=== PATIENT | male | born 1985 | race Caucasian/White ===

== ENCOUNTER 2021-02-23 17:20 | Emergency (ER) | payer BC, OTHER | END 2021-02-23 19:00 | disposition left against medical advice (07) | LOC: MW.ED 17:20 | DX: Z53.21 Procedure and treatment not carried out due to patient leaving prior to being seen by health care provider (principal) ==

== ENCOUNTER 2021-03-04 05:53 | Emergency (ER) | payer SELFPAY ==
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
--- NOTE | 2021-03-04 07:07 | CR ---
INDICATION: Chest pain COMPARISON: none TECHNIQUE: AP erect chest performed at 6:23 a.m. FINDINGS: The lungs are clear. There is no evidence of pneumothorax. The visualized ribs appear intact. The heart, mediastinum and pulmonary vessels are of normal size. There is no evidence of pleural fluid. IMPRESSION: Negative chest. Dictated by Rashawn Sinclair MD @ 03/04/2021 7:06:19 AM (Electronically Signed)
== END 2021-03-04 07:08 | disposition critical access hospital (66) ==
LOC: MW.ED 05:53
DX: R07.89 Other chest pain (principal)
CPT/HCPCS: 71045; 71045-26; 99285-25

== ENCOUNTER 2021-03-04 09:46 | Inpatient (IN) | payer OTHER ==
[2021-03-04] MEDS ORDERED: Sodium Chloride 0.9% 1,000 ML IV ONE (09:49)
[2021-03-04] MEDS ORDERED: LORazepam 1 MG Tab PO ONE (09:49)
[2021-03-04] MEDS ORDERED: LORazepam 2 MG/ML SDV IVPUSH ONE (09:53)
[2021-03-04] MEDS ORDERED: chlordiazePOXIDE 25 MG Cap PO ONE (09:53)
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
[2021-03-04 10:56] LABS: BLOOD UREA NITROGEN,BUN 12 mg/dL (7.0-18.0); CARBON DIOXIDE,CO2 22.6 mmol/L (21.0-32.0); CHLORIDE,CL 83 mmol/L (98-107); GLUCOSE RANDOM 69 mg/dL (74-106); LIPASE 242 U/L (73-393); POTASSIUM,K 3.1 mmol/L (3.5-5.1); SODIUM,NA 129 mmol/L (136-148)
[2021-03-04] MEDS ORDERED: Thiamine 100 MG in Sodium Chloride 0.9% 100 ML IV SCH ×2 (11:00→14:30)
--- NOTE | 2021-03-04 11:27 | CT ---
Indication: Fall Technique: Noncontrast head CT Comparison: No comparison Findings: Axial noncontrast images the brain demonstrates no acute intracranial hemorrhage. No abnormal extra-axial air or fluid collections are seen. Paranasal sinuses, mastoid air cells, skull scalp appear unremarkable aside from mucosal thickening of the maxillary sinuses and partial opacification the ethmoid air cells. Impression: No acute intracranial hemorrhage or mass Please note that all CT scans at this facility use dose modulation, iterative reconstruction, and/or weight-based dosing when appropriate to reduce radiation dose to as low as reasonably achievable. Dictated by Trupti Beckford MD @ 03/04/2021 11:25:15 AM (Electronically Signed)
--- NOTE | 2021-03-04 11:29 | CT ---
Indication: Fall Technique: Cervical spine CT Comparison: No comparison Findings: Straightening of normal cervical lordosis. Normal height and alignment of the cervical vertebral bodies. The lateral masses of C1 align with the articular processes of C2. No acute fractures seen. Prevertebral soft tissues are within normal limits. Impression: No acute vertebral body fracture or traumatic malalignment. Please note that all CT scans at this facility use dose modulation, iterative reconstruction, and/or weight-based dosing when appropriate to reduce radiation dose to as low as reasonably achievable. Dictated by Trupti Beckford MD @ 03/04/2021 11:28:18 AM (Electronically Signed)
--- NOTE | 2021-03-04 11:33 | CT ---
DATE: 03/04/2021. CLINICAL HISTORY: Fall from standing, alcohol abuse. TECHNIQUE: Helical CT acquisition of the lumbar spine was performed. Coronal and sagittal reformations were performed and interpreted. COMPARISON: None available. FINDINGS: There are 5 [id number] lumbar type vertebra left hemisacralization of L5 with associated degenerative change. Postsurgical changes related to prior right L5 hemilaminectomy. There is no evidence of acute displaced fracture or traumatic malalignment of the lumbar spine. Vertebral body heights are maintained without evidence of significant compression deformity. Mild lumbar spondylosis of the lower lumbar spine with mild retrolisthesis of L4 on L5. No evidence of significant central canal stenosis. At L4-5, disc bulge eccentric to the left with associated left greater than right facet arthropathy results in apparent effacement of the left subarticular recess containing the descending L5 nerve root as well as moderate left foraminal narrowing. The paravertebral soft tissues are unremarkable. Hepatic steatosis. IMPRESSION: 1. No acute fracture or traumatic malalignment of the lumbar spine. 2. Postsurgical changes related to prior right L5 hemilaminectomy. 3. 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 4. Mild lumbar spondylosis of the lower lumbar spine with mild retrolisthesis of L4 on L5. 5. At L4-5, there is probable effacement of the left subarticular recess containing the descending L5 nerve root and moderate left foraminal narrowing. Please note that all CT scans at this facility use dose modulation, iterative reconstruction, and/or weight-based dosing when appropriate to reduce radiation dose to as low as reasonably achievable. Dictated by Zohaib Caballero MD @ 03/04/2021 6:36:48 PM (Electronically Signed)
--- NOTE | 2021-03-04 11:37 | CT ---
DATE: 03/04/2021. CLINICAL HISTORY: Fall from standing, alcohol abuse. TECHNIQUE: Helical CT acquisition of the thoracic spine was performed. Coronal and sagittal reformations were performed and interpreted. COMPARISON: None available. FINDINGS: There is no evidence of acute displaced fracture or traumatic malalignment of the thoracic spine. Vertebral body heights are maintained without evidence of significant compression deformity. Very mild scattered degenerative changes within the thoracic spine. No evidence of significant central canal stenosis. The paravertebral soft tissues are unremarkable. The visualized lungs are unremarkable. Hepatic steatosis. IMPRESSION: No acute displaced fracture or traumatic malalignment of the thoracic spine. Please note that all CT scans at this facility use dose modulation, iterative reconstruction, and/or weight-based dosing when appropriate to reduce radiation dose to as low as reasonably achievable. Dictated by Zohaib Caballero MD @ 03/04/2021 6:21:01 PM (Electronically Signed)
[2021-03-04] MEDS: Folic Acid 50 MG/10 ML MDV IV SCH (11:43)
[2021-03-04] MEDS ORDERED: Thiamine 200 MG/2 ML MDV IVPUSH ONE (12:00)
--- NOTE | 2021-03-04 14:15 | PCM.EKG ---
#1 Interpretation EKG Date: 03/04/21 Time: 14:03 Rhythm: NSR Rate (Beats/Min): 74 ST-T: Normal
[2021-03-04] MEDS ORDERED: Thiamine 200 MG/2 ML MDV ONE (14:31)
[2021-03-04] MEDS: Thiamine 200 MG/2 ML MDV IVPUSH SCH (14:39)
[2021-03-04] MEDS ORDERED: Potassium Chloride 20 MEQ Tab.ER PO ONE (16:35)
[2021-03-04] MEDS ORDERED: Magnesium Sulfate/Water 2 GM in Premix Bag 1 BAG IV ONE (16:36)
[2021-03-04] MEDS ORDERED: Sodium Chloride 0.9% 1,000 ML IV SCH (16:45)
[2021-03-04] MEDS: LORazepam 2 MG/ML SDV IVPUSH PRN ×2 (18:29→20:20)
[2021-03-04] MEDS: Sodium Chloride 0.9% with KCl 1,000 ML IV SCH (21:06)
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
[2021-03-04] MEDS: Heparin Sodium 5,000 Units/ML Vial SUBCUT SCH (22:23)
[2021-03-05] MEDS: LORazepam 2 MG/ML SDV IVPUSH PRN ×3 (03:55→17:42)
[2021-03-05] MEDS: Sodium Chloride 0.9% with KCl 1,000 ML IV SCH ×2 (05:20→22:27)
[2021-03-05] MEDS ORDERED: Diazepam 5 MG Tab PO SCH (06:00)
[2021-03-05] MEDS: Heparin Sodium 5,000 Units/ML Vial SUBCUT SCH ×3 (06:24→22:52)
[2021-03-05 06:57] LABS: BLOOD UREA NITROGEN,BUN 5 mg/dL (7.0-18.0); CARBON DIOXIDE,CO2 15.9 mmol/L (21.0-32.0); CHLORIDE,CL 98 mmol/L (98-107); GLUCOSE RANDOM 63 mg/dL (74-106); SODIUM,NA 138 mmol/L (136-148)
[2021-03-05 07:14] LABS: POTASSIUM,K 2.3 mmol/L (3.5-5.1)
[2021-03-05] MEDS ORDERED: Potassium Chloride 20 MEQ Tab.ER PO ONE ×2 (07:29→22:05)
[2021-03-05] MEDS: Folic Acid 50 MG/10 ML MDV IV SCH (08:16)
[2021-03-05] MEDS: Thiamine 200 MG/2 ML MDV IVPUSH SCH (08:16)
[2021-03-05] MEDS ORDERED: Sodium Chloride 0.9% with KCl 1,000 ML IV SCH (12:00)
--- NOTE | 2021-03-05 15:20 | PCM.PN ---
- General Info Date of Service: 03/05/21 - Review of Systems Systems Review Comment:: more alert today, wants to go home, explained that he is in police custody so if we discharge he will be going to long term. - Patient Data Vitals - Most Recent: Last Vital Signs Temp 36.6 C 03/05/21 08:00 Pulse 91 03/05/21 08:00 Resp 22 H 03/05/21 08:00 BP 118/76 03/05/21 08:00 Pulse Ox 93 L 03/05/21 08:00 Weight - Most Recent: 63.503 kg I&O - Last 24 Hours: Intake & Output 03/05/21 03/05/21 03/05/21 06:59 14:59 22:59 Intake Total 990 Output Total 1650 Balance -660 Lab Results Last 24 Hours: Laboratory Results - last 24 hr 03/04/21 03/04/21 03/05/21 Range/Units 14:21 15:30 05:29 WBC 8.56 (4.0-11.0) K/uL RBC 4.03 L (4.50-5.90) M/uL Hgb 13.9 (13.0-17.0) g/dL Hct 40.1 (38.0-50.0) % MCV 99.5 H (80.0-98.0) fL MCH 34.5 H (27.0-32.0) pg MCHC 34.7 (31.0-37.0) g/dL RDW Std Deviation 45.9 (28.0-62.0) fl RDW Coeff of Prashant 13 (11.0-15.0) % Plt Count 138 L (150-400) K/uL MPV 10.40 (7.40-12.00) fL Neut % (Auto) 71.1 (48.0-80.0) % Lymph % (Auto) 10.4 L (16.0-40.0) % [place] % (Auto) 16.9 H (0.0-15.0) % Eos % (Auto) 1.5 (0.0-7.0) % Baso % (Auto) 0.1 (0.0-1.5) % Neut # (Auto) 6.1 H (1.4-5.7) K/uL Lymph # (Auto) 0.9 (0.6-2.4) K/uL [place] # (Auto) 1.5 H (0.0-0.8) K/uL Eos # (Auto) 0.1 (0.0-0.7) K/uL Baso # (Auto) 0.0 (0.0-0.1) K/uL Nucleated RBC % 0.0 /100WBC Nucleated RBCs # 0 K/uL Sodium (136-148) mmol/L Potassium (3.5-5.1) mmol/L Chloride (98-107) mmol/L Carbon Dioxide (21.0-32.0) mmol/L BUN (7.0-18.0) mg/dL Creatinine (0.8-1.3) mg/dL Est Cr Clr Drug Dosing mL/min Estimated GFR (MDRD) ml/min Glucose (74-106) mg/dL Calcium (8.5-10.1) mg/dL Phosphorus (2.6-4.7) mg/dL Magnesium (1.8-2.4) mg/dL Total Bilirubin (0.2-1.0) mg/dL AST (15-37) IU/L ALT (14-63) IU/L Alkaline Phosphatase (46-116) U/L Total Protein (6.4-8.2) g/dL Albumin (3.4-5.0) g/dL Globulin (2.6-4.0) g/dL Albumin/Globulin Ratio (0.9-1.6) Urine Opiates Screen NEGATIVE (NEGATIVE) Ur Oxycodone Screen NEGATIVE (NEGATIVE) Urine Methadone Screen NEGATIVE (NEGATIVE) Ur Barbiturates Screen NEGATIVE (NEGATIVE) Ur Phencyclidine Scrn NEGATIVE (NEGATIVE) Ur Amphetamine Screen NEGATIVE (NEGATIVE) U Methamphetamines Scrn NEGATIVE (NEGATIVE) U Benzodiazepines Scrn NEGATIVE (NEGATIVE) U Cocaine Metab Screen NEGATIVE (NEGATIVE) U Marijuana (THC) Screen NEGATIVE (NEGATIVE) SARS-CoV-2 RNA (ROSY) NEGATIVE (NEGATIVE) 03/05/21 Range/Units 05:29 WBC (4.0-11.0) K/uL RBC (4.50-5.90) M/uL Hgb (13.0-17.0) g/dL Hct (38.0-50.0) % MCV (80.0-98.0) fL MCH (27.0-32.0) pg MCHC (31.0-37.0) g/dL RDW Std Deviation (28.0-62.0) fl RDW Coeff of Prashant (11.0-15.0) % Plt Count (150-400) K/uL MPV (7.40-12.00) fL Neut % (Auto) (48.0-80.0) % Lymph % (Auto) (16.0-40.0) % [place] % (Auto) (0.0-15.0) % Eos % (Auto) (0.0-7.0) % Baso % (Auto) (0.0-1.5) % Neut # (Auto) (1.4-5.7) K/uL Lymph # (Auto) (0.6-2.4) K/uL [place] # (Auto) (0.0-0.8) K/uL Eos # (Auto) (0.0-0.7) K/uL Baso # (Auto) (0.0-0.1) K/uL Nucleated RBC % /100WBC Nucleated RBCs # K/uL Sodium 138 (136-148) mmol/L Potassium 2.3 L* (3.5-5.1) mmol/L Chloride 98 (98-107) mmol/L Carbon Dioxide 15.9 L (21.0-32.0) mmol/L BUN 5 L (7.0-18.0) mg/dL Creatinine 0.8 (0.8-1.3) mg/dL Est Cr Clr Drug Dosing 104.83 mL/min Estimated GFR (MDRD) > 60.0 ml/min Glucose 63 L (74-106) mg/dL Calcium 7.2 L (8.5-10.1) mg/dL Phosphorus 2.7 (2.6-4.7) mg/dL Magnesium 1.9 (1.8-2.4) mg/dL Total Bilirubin 2.3 H (0.2-1.0) mg/dL AST 174 H (15-37) IU/L ALT 86 H (14-63) IU/L Alkaline Phosphatase 204 H (46-116) U/L Total Protein 6.2 L (6.4-8.2) g/dL Albumin 2.6 L (3.4-5.0) g/dL Globulin 3.6 (2.6-4.0) g/dL Albumin/Globulin Ratio 0.7 L (0.9-1.6) Urine Opiates Screen (NEGATIVE) Ur Oxycodone Screen (NEGATIVE) Urine Methadone Screen (NEGATIVE) Ur Barbiturates Screen (NEGATIVE) Ur Phencyclidine Scrn (NEGATIVE) Ur Amphetamine Screen (NEGATIVE) U Methamphetamines Scrn (NEGATIVE) U Benzodiazepines Scrn (NEGATIVE) U Cocaine Metab Screen (NEGATIVE) U Marijuana (THC) Screen (NEGATIVE) SARS-CoV-2 RNA (ROSY) (NEGATIVE) Med Orders - Current: Current Medications Diazepam (Diazepam 10 Mg/2 Ml Syringe) 2 mg IVPUSH BID [facility] Last Admin: 03/05/21 12:56 Dose: 2 mg Documented by: Folic Acid (Folic Acid 50 Mg/10 Ml Mdv) 1 mg IV DAILY [facility] Last Admin: 03/05/21 08:16 Dose: 1 mg Documented by: Heparin Sodium (Porcine) (Heparin Sodium 5,000 Units/Ml Vial) 5,000 units SUBCUT Q8H [facility] Last Admin: 03/05/21 13:25 Dose: 5,000 units Documented by: Potassium Chloride/Sodium Chloride (Normal Saline With 40 Meq Kcl) 1,000 mls @ 125 mls/hr IV ASDIRECTED [facility] Last Admin: 03/05/21 05:20 Dose: 125 mls/hr Documented by: Potassium Chloride/Sodium Chloride (Normal Saline With 40 Meq Kcl) 1,000 mls @ 150 mls/hr IV ASDIRECTED [facility] Stop: 03/05/21 18:39 Last Admin: 03/05/21 12:57 Dose: 150 mls/hr Documented by: Lorazepam (Lorazepam 2 Mg/Ml Sdv) 2 mg IVPUSH Q4H PRN; Protocol PRN Reason: PER [facility] Last Admin: 03/05/21 10:52 Dose: 2 mg Documented by: Thiamine HCl (Thiamine 200 Mg/2 Ml Mdv) 100 mg IVPUSH DAILY [facility] Last Admin: 03/05/21 08:16 Dose: 100 mg Documented by: Discontinued Medications Chlordiazepoxide HCl (Chlordiazepoxide 25 Mg Cap) 50 mg PO ONETIME ONE Stop: 03/04/21 09:54 Last Admin: 03/04/21 10:43 Dose: 50 mg Documented by: Diazepam (Diazepam 5 Mg Tab) 5 mg PO TID [facility] Last Admin: 03/05/21 06:27 Dose: Not Given Documented by: Sodium Chloride (Normal Saline) 1,000 mls @ 999 mls/hr IV .BOLUS ONE Stop: 03/04/21 10:49 Last Admin: 03/04/21 10:34 Dose: 999 mls/hr Documented by: Thiamine HCl 100 mg/ Sodium (Chloride) 101 mls @ 202 mls/hr IV DAILY [facility] Last Admin: 03/04/21 14:50 Dose: Not Given Documented by: Magnesium Sulfate 2 gm/ Premix 50 mls @ 12.5 mls/hr IV ONETIME ONE Stop: 03/04/21 20:35 Last Admin: 03/04/21 17:01 Dose: 12.5 mls/hr Documented by: Sodium Chloride (Normal Saline) 1,000 mls @ 125 mls/hr IV ASDIRECTED [facility] Last Admin: 03/04/21 17:01 Dose: 125 mls/hr Documented by: Lorazepam (Lorazepam 1 Mg Tab) 4 mg PO ONETIME ONE Stop: 03/04/21 09:50 Last Admin: 03/04/21 10:43 Dose: Not Given Documented by: Lorazepam (Lorazepam 2 Mg/Ml Sdv) 4 mg IVPUSH ONETIME ONE Stop: 03/04/21 09:54 Last Admin: 03/04/21 10:34 Dose: 4 mg Documented by: Potassium Chloride (Potassium Chloride 20 Meq Tab.Er) 40 meq PO ONETIME ONE Stop: 03/04/21 16:36 Last Admin: 03/04/21 19:42 Dose: Not Given Documented by: Potassium Chloride (Potassium Chloride 20 Meq Tab.Er) 40 meq PO ONETIME ONE Stop: 03/05/21 07:30 Last Admin: 03/05/21 11:05 Dose: Not Given Documented by: Thiamine HCl (Thiamine 200 Mg/2 Ml Mdv) 100 mg IVPUSH ONETIME ONE Stop: 03/04/21 12:01 Last Admin: 03/04/21 14:36 Dose: Not Given Documented by: Thiamine HCl (Thiamine 200 Mg/2 Ml Mdv) Confirm Administered Dose 200 mg .ROUTE .STK-MED ONE Stop: 03/04/21 14:32 Last Admin: 03/04/21 14:36 Dose: Not Given Documented by: - Exam General: No Acute Distress HEENT: Pupils Equal Neck: Supple Lungs: Clear to Auscultation, Normal Respiratory Effort Cardiovascular: Regular Rate, Regular Rhythm GI/Abdominal Exam: Normal Bowel Sounds, Soft, Non-Tender Extremities: Non-Tender, No Pedal Edema Skin: Warm, Dry, Intact - Patient Data Lab Results Last 24 hrs: Laboratory Results - last 24 hr 03/04/21 03/04/21 03/05/21 Range/Units 14:21 15:30 05:29 WBC 8.56 (4.0-11.0) K/uL RBC 4.03 L (4.50-5.90) M/uL Hgb 13.9 (13.0-17.0) g/dL Hct 40.1 (38.0-50.0) % MCV 99.5 H (80.0-98.0) fL MCH 34.5 H (27.0-32.0) pg MCHC 34.7 (31.0-37.0) g/dL RDW Std Deviation 45.9 (28.0-62.0) fl RDW Coeff of Prashant 13 (11.0-15.0) % Plt Count 138 L (150-400) K/uL MPV 10.40 (7.40-12.00) fL Neut % (Auto) 71.1 (48.0-80.0) % Lymph % (Auto) 10.4 L (16.0-40.0) % [place] % (Auto) 16.9 H (0.0-15.0) % Eos % (Auto) 1.5 (0.0-7.0) % Baso % (Auto) 0.1 (0.0-1.5) % Neut # (Auto) 6.1 H (1.4-5.7) K/uL Lymph # (Auto) 0.9 (0.6-2.4) K/uL [place] # (Auto) 1.5 H (0.0-0.8) K/uL Eos # (Auto) 0.1 (0.0-0.7) K/uL Baso # (Auto) 0.0 (0.0-0.1) K/uL Nucleated RBC % 0.0 /100WBC Nucleated RBCs # 0 K/uL Sodium (136-148) mmol/L Potassium (3.5-5.1) mmol/L Chloride (98-107) mmol/L Carbon Dioxide (21.0-32.0) mmol/L BUN (7.0-18.0) mg/dL Creatinine (0.8-1.3) mg/dL Est Cr Clr Drug Dosing mL/min Estimated GFR (MDRD) ml/min Glucose (74-106) mg/dL Calcium (8.5-10.1) mg/dL Phosphorus (2.6-4.7) mg/dL Magnesium (1.8-2.4) mg/dL Total Bilirubin (0.2-1.0) mg/dL AST (15-37) IU/L ALT (14-63) IU/L Alkaline Phosphatase (46-116) U/L Total Protein (6.4-8.2) g/dL Albumin (3.4-5.0) g/dL Globulin (2.6-4.0) g/dL Albumin/Globulin Ratio (0.9-1.6) Urine Opiates Screen NEGATIVE (NEGATIVE) Ur Oxycodone Screen NEGATIVE (NEGATIVE) Urine Methadone Screen NEGATIVE (NEGATIVE) Ur Barbiturates Screen NEGATIVE (NEGATIVE) Ur Phencyclidine Scrn NEGATIVE (NEGATIVE) Ur Amphetamine Screen NEGATIVE (NEGATIVE) U Methamphetamines Scrn NEGATIVE (NEGATIVE) U Benzodiazepines Scrn NEGATIVE (NEGATIVE) U Cocaine Metab Screen NEGATIVE (NEGATIVE) U Marijuana (THC) Screen NEGATIVE (NEGATIVE) SARS-CoV-2 RNA (ROSY) NEGATIVE (NEGATIVE) 03/05/21 Range/Units 05:29 WBC (4.0-11.0) K/uL RBC (4.50-5.90) M/uL Hgb (13.0-17.0) g/dL Hct (38.0-50.0) % MCV (80.0-98.0) fL MCH (27.0-32.0) pg MCHC (31.0-37.0) g/dL RDW Std Deviation (28.0-62.0) fl RDW Coeff of Prashant (11.0-15.0) % Plt Count (150-400) K/uL MPV (7.40-12.00) fL Neut % (Auto) (48.0-80.0) % Lymph % (Auto) (16.0-40.0) % [place] % (Auto) (0.0-15.0) % Eos % (Auto) (0.0-7.0) % Baso % (Auto) (0.0-1.5) % Neut # (Auto) (1.4-5.7) K/uL Lymph # (Auto) (0.6-2.4) K/uL [place] # (Auto) (0.0-0.8) K/uL Eos # (Auto) (0.0-0.7) K/uL Baso # (Auto) (0.0-0.1) K/uL Nucleated RBC % /100WBC Nucleated RBCs # K/uL Sodium 138 (136-148) mmol/L Potassium 2.3 L* (3.5-5.1) mmol/L Chloride 98 (98-107) mmol/L Carbon Dioxide 15.9 L (21.0-32.0) mmol/L BUN 5 L (7.0-18.0) mg/dL Creatinine 0.8 (0.8-1.3) mg/dL Est Cr Clr Drug Dosing 104.83 mL/min Estimated GFR (MDRD) > 60.0 ml/min Glucose 63 L (74-106) mg/dL Calcium 7.2 L (8.5-10.1) mg/dL Phosphorus 2.7 (2.6-4.7) mg/dL Magnesium 1.9 (1.8-2.4) mg/dL Total Bilirubin 2.3 H (0.2-1.0) mg/dL AST 174 H (15-37) IU/L ALT 86 H (14-63) IU/L Alkaline Phosphatase 204 H (46-116) U/L Total Protein 6.2 L (6.4-8.2) g/dL Albumin 2.6 L (3.4-5.0) g/dL Globulin 3.6 (2.6-4.0) g/dL Albumin/Globulin Ratio 0.7 L (0.9-1.6) Urine Opiates Screen (NEGATIVE) Ur Oxycodone Screen (NEGATIVE) Urine Methadone Screen (NEGATIVE) Ur Barbiturates Screen (NEGATIVE) Ur Phencyclidine Scrn (NEGATIVE) Ur Amphetamine Screen (NEGATIVE) U Methamphetamines Scrn (NEGATIVE) U Benzodiazepines Scrn (NEGATIVE) U Cocaine Metab Screen (NEGATIVE) U Marijuana (THC) Screen (NEGATIVE) SARS-CoV-2 RNA (ROSY) (NEGATIVE) Result Diagrams: 03/05/21 05:29 03/05/21 05:29 Sepsis Event Note - Evaluation Sepsis Screening Result: No Definite Risk - Focused Exam Vital Signs: Vital Signs Temp Pulse Resp BP Pulse Ox 03/05/21 08:00 36.6 C 91 22 H 118/76 93 L 03/05/21 03:38 36.8 C 79 20 132/82 95 - Problem List & Annotations (1) Alcohol withdrawal SNOMED Code(s): 076627849 Code(s): F10.239 - ALCOHOL DEPENDENCE WITH WITHDRAWAL, UNSPECIFIED Status: Acute Current Visit: Yes - Problem List Review Problem List Initiated/Reviewed/Updated: Yes - My Orders Last 24 Hours: My Active Orders 03/04/21 15:40 Telemetry Monitoring [Cardiac Monitoring] [RC] Q8H 03/04/21 Dinner Regular Diet [DIET] 03/04/21 16:34 LORazepam [Ativan] 2 mg IVPUSH Q4H PRN 03/04/21 19:45 Sodium Chloride 0.9% with KCl [Normal Saline with 40 mEq KCl] 1,000 ml IV ASDIRECTED 03/04/21 22:10 Oxygen Therapy [RC] PRN VTE/DVT Education [RC] PER UNIT ROUTINE Vital Signs [RC] Q4H Sequential Compression Device [OM.PC] Per Unit Routine Resuscitation Status Routine 03/04/21 22:11 Antiembolic Devices [RC] PER UNIT ROUTINE 03/04/21 22:15 Heparin Sodium 5,000 units SUBCUT Q8H 03/05/21 12:00 Sodium Chloride 0.9% with KCl [Normal Saline with 40 mEq KCl] 1,000 ml IV ASDIRECTED diazePAM [Valium] 2 mg IVPUSH BID 03/05/21 17:00 POTASSIUM,K [CHEM] 1700 03/06/21 05:11 CBC WITH AUTO DIFF [HEME] AM COMPREHENSIVE METABOLIC PN,CMP [CHEM] AM MAGNESIUM [CHEM] AM PHOSPHORUS [CHEM] AM 03/07/21 05:11 CBC WITH AUTO DIFF [HEME] AM COMPREHENSIVE METABOLIC PN,CMP [CHEM] AM MAGNESIUM [CHEM] AM PHOSPHORUS [CHEM] AM 03/08/21 05:11 CBC WITH AUTO DIFF [HEME] AM COMPREHENSIVE METABOLIC PN,CMP [CHEM] AM MAGNESIUM [CHEM] AM PHOSPHORUS [CHEM] AM 03/09/21 05:11 CBC WITH AUTO DIFF [HEME] AM COMPREHENSIVE METABOLIC PN,CMP [CHEM] AM MAGNESIUM [CHEM] AM PHOSPHORUS [CHEM] AM - Plan Plan:: 36 yo male admitted for ETOH withdrawal. ETOH withdrawal: Valium BID, ativan prn, Thiamin and folic acid. Hypokalemia:replacing
[2021-03-06] MEDS: Heparin Sodium 5,000 Units/ML Vial SUBCUT SCH ×3 (05:32→21:15)
[2021-03-06 07:03] LABS: BLOOD UREA NITROGEN,BUN 4 mg/dL (7.0-18.0); CARBON DIOXIDE,CO2 22.1 mmol/L (21.0-32.0); CHLORIDE,CL 104 mmol/L (98-107); GLUCOSE RANDOM 165 mg/dL (74-106); POTASSIUM,K 3.2 mmol/L (3.5-5.1); SODIUM,NA 137 mmol/L (136-148)
[2021-03-06] MEDS: Folic Acid 50 MG/10 ML MDV IV SCH (08:08)
[2021-03-06] MEDS: Thiamine 200 MG/2 ML MDV IVPUSH SCH (08:09)
[2021-03-06] MEDS: Sodium Chloride 0.9% with KCl 1,000 ML IV SCH (08:11)
[2021-03-06] MEDS ORDERED: Potassium Chloride 20 MEQ Tab.ER PO ONE (09:08)
[2021-03-06] MEDS ORDERED: Magnesium Sulfate/Water 2 GM/50 ML Premix Bag IV ONE (09:08)
--- NOTE | 2021-03-06 09:13 | PCM.PN ---
- General Info Date of Service: 03/06/21 - Review of Systems Systems Review Comment:: feeling better, wants to go home but is in police custody - Patient Data Vitals - Most Recent: Last Vital Signs Temp 36.6 C 03/06/21 03:48 Pulse 77 03/06/21 03:48 Resp 20 03/06/21 03:48 BP 148/101 H 03/06/21 03:48 Pulse Ox 96 03/06/21 03:48 Weight - Most Recent: 63.503 kg I&O - Last 24 Hours: Intake & Output 03/05/21 03/06/21 03/06/21 22:59 06:59 14:59 Intake Total 993 740 Output Total 1860 2000 Balance -867 -1260 Lab Results Last 24 Hours: Laboratory Results - last 24 hr 03/05/21 03/06/21 03/06/21 Range/Units 17:44 05:30 05:30 WBC 6.36 (4.0-11.0) K/uL RBC 3.73 L (4.50-5.90) M/uL Hgb 13.0 (13.0-17.0) g/dL Hct 37.5 L (38.0-50.0) % MCV 100.5 H (80.0-98.0) fL MCH 34.9 H (27.0-32.0) pg MCHC 34.7 (31.0-37.0) g/dL RDW Std Deviation 46.7 (28.0-62.0) fl RDW Coeff of Prashant 13 (11.0-15.0) % Plt Count 183 (150-400) K/uL MPV 10.10 (7.40-12.00) fL Neut % (Auto) 59.4 (48.0-80.0) % Lymph % (Auto) 17.9 (16.0-40.0) % Canadian % (Auto) 19.8 H (0.0-15.0) % Eos % (Auto) 2.7 (0.0-7.0) % Baso % (Auto) 0.2 (0.0-1.5) % Neut # (Auto) 3.8 (1.4-5.7) K/uL Lymph # (Auto) 1.1 (0.6-2.4) K/uL Canadian # (Auto) 1.3 H (0.0-0.8) K/uL Eos # (Auto) 0.2 (0.0-0.7) K/uL Baso # (Auto) 0.0 (0.0-0.1) K/uL Nucleated RBC % 0.0 /100WBC Nucleated RBCs # 0 K/uL Sodium 137 (136-148) mmol/L Potassium 2.8 L 3.2 L (3.5-5.1) mmol/L Chloride 104 (98-107) mmol/L Carbon Dioxide 22.1 (21.0-32.0) mmol/L BUN 4 L (7.0-18.0) mg/dL Creatinine 0.8 (0.8-1.3) mg/dL Est Cr Clr Drug Dosing 104.83 mL/min Estimated GFR (MDRD) > 60.0 ml/min Glucose 165 H (74-106) mg/dL Calcium 8.1 L (8.5-10.1) mg/dL Phosphorus 1.1 L (2.6-4.7) mg/dL Magnesium 1.6 L (1.8-2.4) mg/dL Total Bilirubin 1.3 H (0.2-1.0) mg/dL AST 117 H (15-37) IU/L ALT 84 H (14-63) IU/L Alkaline Phosphatase 176 H (46-116) U/L Total Protein 6.0 L (6.4-8.2) g/dL Albumin 2.3 L (3.4-5.0) g/dL Globulin 3.7 (2.6-4.0) g/dL Albumin/Globulin Ratio 0.6 L (0.9-1.6) Med Orders - Current: Current Medications Diazepam (Diazepam 10 Mg/2 Ml Syringe) 2 mg IVPUSH BID [facility] Last Admin: 03/06/21 08:10 Dose: 2 mg Documented by: Folic Acid (Folic Acid 50 Mg/10 Ml Mdv) 1 mg IV DAILY [facility] Last Admin: 03/06/21 08:08 Dose: 1 mg Documented by: Heparin Sodium (Porcine) (Heparin Sodium 5,000 Units/Ml Vial) 5,000 units S UBCUT Q8H [facility] Last Admin: 03/06/21 05:32 Dose: 5,000 units Documented by: Potassium Chloride/Sodium Chloride (Normal Saline With 40 Meq Kcl) 1,000 mls @ 125 mls/hr IV ASDIRECTED [facility] Last Admin: 03/06/21 08:11 Dose: 125 mls/hr Documented by: Lorazepam (Lorazepam 2 Mg/Ml Sdv) 2 mg IVPUSH Q4H PRN; Protocol PRN Reason: PER [facility] Last Admin: 03/05/21 17:42 Dose: 1 mg Documented by: Magnesium Sulfate (Magnesium Sulfate/Water 2 Gm/50 Ml Premix Bag) 2 gm IV ONETIME ONE Stop: 03/06/21 09:09 Potassium Chloride (Potassium Chloride 20 Meq Tab.Er) 60 meq PO ONETIME ONE Stop: 03/06/21 09:09 Sodium Phosphate (Phosphorus #1 250 Mg Tab) 250 mg PO QID [facility] Thiamine HCl (Thiamine 200 Mg/2 Ml Mdv) 100 mg IVPUSH DAILY [facility] Last Admin: 03/06/21 08:09 Dose: 100 mg Documented by: Discontinued Medications Chlordiazepoxide HCl (Chlordiazepoxide 25 Mg Cap) 50 mg PO ONETIME ONE Stop: 03/04/21 09:54 Last Admin: 03/04/21 10:43 Dose: 50 mg Documented by: Diazepam (Diazepam 5 Mg Tab) 5 mg PO TID [facility] Last Admin: 03/05/21 06:27 Dose: Not Given Documented by: Sodium Chloride (Normal Saline) 1,000 mls @ 999 mls/hr IV .BOLUS ONE Stop: 03/04/21 10:49 Last Admin: 03/04/21 10:34 Dose: 999 mls/hr Documented by: Thiamine HCl 100 mg/ Sodium (Chloride) 101 mls @ 202 mls/hr IV DAILY [facility] Last Admin: 03/04/21 14:50 Dose: Not Given Documented by: Magnesium Sulfate 2 gm/ Premix 50 mls @ 12.5 mls/hr IV ONETIME ONE Stop: 03/04/21 20:35 Last Admin: 03/04/21 17:01 Dose: 12.5 mls/hr Documented by: Sodium Chloride (Normal Saline) 1,000 mls @ 125 mls/hr IV ASDIRECTED [facility] Last Admin: 03/04/21 17:01 Dose: 125 mls/hr Documented by: Potassium Chloride/Sodium Chloride (Normal Saline With 40 Meq Kcl) 1,000 mls @ 150 mls/hr IV ASDIRECTED [facility] Stop: 03/05/21 18:39 Last Admin: 03/05/21 12:57 Dose: 150 mls/hr Documented by: Lorazepam (Lorazepam 1 Mg Tab) 4 mg PO ONETIME ONE Stop: 03/04/21 09:50 Last Admin: 03/04/21 10:43 Dose: Not Given Documented by: Lorazepam (Lorazepam 2 Mg/Ml Sdv) 4 mg IVPUSH ONETIME ONE Stop: 03/04/21 09:54 Last Admin: 03/04/21 10:34 Dose: 4 mg Documented by: Potassium Chloride (Potassium Chloride 20 Meq Tab.Er) 40 meq PO ONETIME ONE Stop: 03/04/21 16:36 Last Admin: 03/04/21 19:42 Dose: Not Given Documented by: Potassium Chloride (Potassium Chloride 20 Meq Tab.Er) 40 meq PO ONETIME ONE Stop: 03/05/21 07:30 Last Admin: 03/05/21 11:05 Dose: Not Given Documented by: Potassium Chloride (Potassium Chloride 20 Meq Tab.Er) 40 meq PO ONETIME ONE Stop: 03/05/21 22:06 Last Admin: 03/05/21 22:13 Dose: 40 meq Documented by: Thiamine HCl (Thiamine 200 Mg/2 Ml Mdv) 100 mg IVPUSH ONETIME ONE Stop: 03/04/21 12:01 Last Admin: 03/04/21 14:36 Dose: Not Given Documented by: Thiamine HCl (Thiamine 200 Mg/2 Ml Mdv) Confirm Administered Dose 200 mg .ROUTE .STK-MED ONE Stop: 03/04/21 14:32 Last Admin: 03/04/21 14:36 Dose: Not Given Documented by: - Exam General: Alert, Oriented Neck: Supple Lungs: Clear to Auscultation, Normal Respiratory Effort Cardiovascular: Regular Rate, Regular Rhythm GI/Abdominal Exam: Normal Bowel Sounds, Soft, Non-Tender Extremities: Non-Tender, No Pedal Edema - Patient Data Lab Results Last 24 hrs: Laboratory Results - last 24 hr 03/05/21 03/06/21 03/06/21 Range/Units 17:44 05:30 05:30 WBC 6.36 (4.0-11.0) K/uL RBC 3.73 L (4.50-5.90) M/uL Hgb 13.0 (13.0-17.0) g/dL Hct 37.5 L (38.0-50.0) % MCV 100.5 H (80.0-98.0) fL MCH 34.9 H (27.0-32.0) pg MCHC 34.7 (31.0-37.0) g/dL RDW Std Deviation 46.7 (28.0-62.0) fl RDW Coeff of Prashant 13 (11.0-15.0) % Plt Count 183 (150-400) K/uL MPV 10.10 (7.40-12.00) fL Neut % (Auto) 59.4 (48.0-80.0) % Lymph % (Auto) 17.9 (16.0-40.0) % Canadian % (Auto) 19.8 H (0.0-15.0) % Eos % (Auto) 2.7 (0.0-7.0) % Baso % (Auto) 0.2 (0.0-1.5) % Neut # (Auto) 3.8 (1.4-5.7) K/uL Lymph # (Auto) 1.1 (0.6-2.4) K/uL Canadian # (Auto) 1.3 H (0.0-0.8) K/uL Eos # (Auto) 0.2 (0.0-0.7) K/uL Baso # (Auto) 0.0 (0.0-0.1) K/uL Nucleated RBC % 0.0 /100WBC Nucleated RBCs # 0 K/uL Sodium 137 (136-148) mmol/L Potassium 2.8 L 3.2 L (3.5-5.1) mmol/L Chloride 104 (98-107) mmol/L Carbon Dioxide 22.1 (21.0-32.0) mmol/L BUN 4 L (7.0-18.0) mg/dL Creatinine 0.8 (0.8-1.3) mg/dL Est Cr Clr Drug Dosing 104.83 mL/min Estimated GFR (MDRD) > 60.0 ml/min Glucose 165 H (74-106) mg/dL Calcium 8.1 L (8.5-10.1) mg/dL Phosphorus 1.1 L (2.6-4.7) mg/dL Magnesium 1.6 L (1.8-2.4) mg/dL Total Bilirubin 1.3 H (0.2-1.0) mg/dL AST 117 H (15-37) IU/L ALT 84 H (14-63) IU/L Alkaline Phosphatase 176 H (46-116) U/L Total Protein 6.0 L (6.4-8.2) g/dL Albumin 2.3 L (3.4-5.0) g/dL Globulin 3.7 (2.6-4.0) g/dL Albumin/Globulin Ratio 0.6 L (0.9-1.6) Result Diagrams: 03/06/21 05:30 03/06/21 05:30 Sepsis Event Note - Evaluation Sepsis Screening Result: No Definite Risk - Focused Exam Vital Signs: Vital Signs Temp Pulse Resp BP Pulse Ox 03/06/21 03:48 36.6 C 77 20 148/101 H 96 03/05/21 22:51 36.4 C 73 20 136/96 H 99 - Problem List & Annotations (1) Alcohol withdrawal SNOMED Code(s): 648893937 Code(s): F10.239 - ALCOHOL DEPENDENCE WITH WITHDRAWAL, UNSPECIFIED Status: Acute Current Visit: Yes - Problem List Review Problem List Initiated/Reviewed/Updated: Yes - My Orders Last 24 Hours: My Active Orders 03/05/21 12:00 diazePAM [Valium] 2 mg IVPUSH BID 03/05/21 18:54 Communication Order [RC] PER UNIT ROUTINE 03/06/21 07:47 Remove Khan Catheter [Urinary Catheter Removal] [RC] PER UNIT ROUTINE 03/06/21 09:08 Magnesium Sulfate/Water [Magnesium Sulfate in Water 2 GM/50 ML] 2 gm IV ONETIME ONE Potassium Chloride [Klor-Con M20] 60 meq PO ONETIME ONE 03/06/21 12:00 Phosphorus #1 [Neutra-Phos] 250 mg PO QID 03/06/21 17:00 BASIC METABOLIC PANEL,BMP [CHEM] Routine MAGNESIUM [CHEM] Routine PHOSPHORUS [CHEM] Routine 03/07/21 05:11 CBC WITH AUTO DIFF [HEME] AM COMPREHENSIVE METABOLIC PN,CMP [CHEM] AM MAGNESIUM [CHEM] AM PHOSPHORUS [CHEM] AM 03/08/21 05:11 CBC WITH AUTO DIFF [HEME] AM COMPREHENSIVE METABOLIC PN,CMP [CHEM] AM MAGNESIUM [CHEM] AM PHOSPHORUS [CHEM] AM 03/09/21 05:11 CBC WITH AUTO DIFF [HEME] AM COMPREHENSIVE METABOLIC PN,CMP [CHEM] AM MAGNESIUM [CHEM] AM PHOSPHORUS [CHEM] AM - Plan Plan:: 36 yo male admitted for ETOH withdrawal. ETOH withdrawal: Valium BID, ativan prn, Thiamin and folic acid. Hypokalemia/hypophoshatemia/hypomagneisa:replacing
[2021-03-06] MEDS ORDERED: Magnesium Sulfate/Water 2 GM in Premix Bag 1 BAG IV ONE (09:15)
[2021-03-06] MEDS: Phosphorus #1 250 MG Tab PO SCH ×3 (11:50→23:56)
[2021-03-06] MEDS: LORazepam 2 MG/ML SDV IVPUSH PRN (18:29)
[2021-03-06 19:18] LABS: BLOOD UREA NITROGEN,BUN 3 mg/dL (7.0-18.0); CARBON DIOXIDE,CO2 27.2 mmol/L (21.0-32.0); CHLORIDE,CL 102 mmol/L (98-107); GLUCOSE RANDOM 189 mg/dL (74-106); POTASSIUM,K 3.9 mmol/L (3.5-5.1); SODIUM,NA 138 mmol/L (136-148)
[2021-03-07] MEDS: Heparin Sodium 5,000 Units/ML Vial SUBCUT SCH (05:45)
[2021-03-07] MEDS: Phosphorus #1 250 MG Tab PO SCH ×2 (05:45→11:21)
[2021-03-07 07:58] LABS: BLOOD UREA NITROGEN,BUN 4 mg/dL (7.0-18.0); CARBON DIOXIDE,CO2 27.6 mmol/L (21.0-32.0); CHLORIDE,CL 104 mmol/L (98-107); GLUCOSE RANDOM 115 mg/dL (74-106); POTASSIUM,K 3.4 mmol/L (3.5-5.1); SODIUM,NA 138 mmol/L (136-148)
[2021-03-07] MEDS: Thiamine 200 MG/2 ML MDV IVPUSH SCH (09:04)
[2021-03-07] MEDS: Folic Acid 50 MG/10 ML MDV IV SCH (09:05)
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
== END 2021-03-07 13:45 | disposition left against medical advice (07) | DRG 894 ==
LOC: MW.ED 09:46 → MW.MS 12:35 → UNDOADMIN 13:50 → MW.MS 13:50
PROVIDERS: ADMIT Internal Medicine; ATTEND Internal Medicine
DX: F10.239 Alcohol dependence with withdrawal, unspecified (principal); S30.0XXA Contusion of lower back and pelvis, initial encounter; W19.XXXA Unspecified fall, initial encounter; Y92.149 Unspecified place in prison as the place of occurrence of the external cause; E87.6 Hypokalemia
CPT/HCPCS: 36415; 51702; 70450; 70450-26; 72125; 72125-26; 72128; 72128-26; 72131; 72131-26; 80048; 80053; 80305-QW; 80307; 83690; 83735; 84100; 84132; 85025; 93005; 96374; 99285-25; A9270-GY; J1644; J2060; J3360; J3411; J3475; J3480; J7030; U0002

== ENCOUNTER 2021-03-07 15:48 | Emergency (ER) | payer OTHER ==
--- NOTE | 2021-03-07 18:37 | EDM.PDOC ---
ED HPI GENERAL MEDICAL PROBLEM - General Chief Complaint: General Stated Complaint: MEDICAL SCREENING Time Seen by Provider: 03/07/21 18:32 Source of Information: Reports: Patient, Police History Limitations: Reports: No Limitations - History of Present Illness INITIAL COMMENTS - FREE TEXT/NARRATIVE: HISTORY AND PHYSICAL: History of present illness: Patient is a 36-year-old male who presents emergency room today in law enforcement custody for medical screening for incarceration. Patient states he has no symptoms or concerns at this time. Patient denies fever, chills, chest pain, shortness of breath, or cough. Denies headache, neck stiff ness, change in vision, syncope, or near syncope. Denies nausea, vomiting, abdominal pain, diarrhea, constipation, or dysuria. Has not noted any blood in urine or stool. Patient has been eating and drinking appropriately. Review of systems: As per history of present illness and below otherwise all systems reviewed and negative. Past medical history: As per history of present illness and as reviewed below otherwise noncontributory. Surgical history: As per history of present illness and as reviewed below otherwise noncontr ibutory. Social history: See social history for further information Family history: As per history of present illness and as reviewed below otherwise noncontributory. Physical exam: General: Patient is alert, oriented, and in no acute distress. Patient sitting comfortably on exam table. Vitals stable and reviewed by me. HEENT: Atraumatic, normocephalic, pupils equal and reactive bilaterally, negative for conjunctival pallor or scleral icterus, mucous membranes moist, throat clear, neck supple, nontender, trachea midline. No drooling or trismus noted. No meningeal signs. No hot potato voice noted. Lungs: Clear to auscultation, breath sounds equal bilaterally, chest nontender. Heart: S1S2, regular rate and rhythm without overt murmur Abdomen: Soft, nondistended, nontender. Negative for masses or hepatosplenomegaly. Negative for costovertebral tenderness. Pelvis: Stable nontender. Genitourinary: Deferred. Rectal: Deferred. Skin: Intact, warm, dry. No lesions or rashes noted. Extremities: Atraumatic, negative for cords or calf pain. Neurovascular unremarkable. Neuro: Awake, alert, oriented. Cranial nerves II through XII unremarkable. Cerebellum unremarkable. Motor and sensory unremarkable throughout. Exam nonfocal. Medical Decision Making: Discussed importance for follow-up with a primary care provider. Signs and symptoms that were prompt return to the ED thoroughly discussed with patient. Voices understanding and is agreeable to plan of care. Denies any further questions or concerns at this time. Diagnostics: None Therapeutics: None Prescription: None Impression: Medical screening for incarceration Plan: Patient discharged to law enforcement custody in stable condition Definitive disposition and diagnosis as appropriate pending reevaluation and review of above. - Related Data Allergies Allergy/AdvReac Type Severity Reaction Status Date / Time No Known Allergies Allergy Verified 03/07/21 16:00 Home Meds: Home Meds . [No Known Home Meds] 02/23/21 [History] Past Medical History - Past Health History Medical/Surgical History: Denies Medical/Surgical History Musculoskeletal History: Reports: Fracture Other Musculoskeletal History: hx of broken collar bone and feet - Infectious Disease History Infectious Disease History: Reports: Chicken Pox Social & Family History - Family History Family Medical History: No Pertinent Family History - Tobacco Use Tobacco Use Status *Q: Current Every Day Tobacco User Years of Tobacco use: 15 Packs/Tins Daily: 2 - Caffeine Use Caffeine Use: Reports: Soda - Recreational Drug Use Recreational Drug Use: No ED ROS GENERAL - Review of Systems Review Of Systems: Comprehensive ROS is negative, except as noted in HPI. ED EXAM, GENERAL - Physical Exam Exam: See Below (See dictation) Course - Vital Signs Last Recorded V/S: Last Vital Signs Temp 98.5 F 03/07/21 16:00 Pulse 101 H 03/07/21 16:00 Resp 16 03/07/21 16:00 BP 130/94 H 03/07/21 16:00 Pulse Ox 100 03/07/21 16:00 Departure - Departure Time of Disposition: 18:35 Disposition: Home, Self-Care 01 Clinical Impression: Medical clearance for incarceration - Discharge Information Referrals: PCP,None [Primary Care Provider] - Additional Instructions: The following information is given to patients seen in the emergency department who are being discharged to home. This information is to outline your options for follow-up care. We provide all patients seen in our emergency department with a follow-up referral. The need for follow-up, as well as the timing and circumstances, are variable depending upon the specifics of your emergency department visit. If you don't have a primary care physician on staff, we will provide you with a referral. We always advise you to contact your personal physician following an emergency department visit to inform them of the circumstance of the visit and for follow-up with them and/or the need for any referrals to a consulting specialist. The emergency department will also refer you to a specialist when appropriate. This referral assures that you have the opportunity for follow-up care with a specialist. All of these measure are taken in an effort to provide you with optimal care, which includes your follow-up. Under all circumstances we always encourage you to contact your private physician who remains a resource for coordinating your care. When calling for follow-up care, please make the office aware that this follow-up is from your recent emergency room visit. If for any reason you are refused follow-up, please contact the [facility] Emergency Department at and asked to speak to the emergency department charge nurse. [facility] [address] [place] [id number] [id number] Sepsis Event Note (ED) - Evaluation Sepsis Screening Result: No Definite Risk - Focused Exam Vital Signs: Vital Signs Temp Pulse Resp BP Pulse Ox 03/07/21 16:00 98.5 F 101 H 16 130/94 H 100
== END 2021-03-07 18:49 ==
LOC: MW.ED 15:48
DX: Z02.89 Encounter for other administrative examinations (principal); Z72.0 Tobacco use
CPT/HCPCS: 99283

== ENCOUNTER 2021-11-30 20:27 | Emergency (ER) | payer MEDICAID | END 2021-11-30 22:17 | disposition left against medical advice (07) | LOC: MW.ED 20:27 | DX: Z53.21 Procedure and treatment not carried out due to patient leaving prior to being seen by health care provider (principal) ==

== ENCOUNTER 2022-09-08 10:48 | Inpatient (IN) | payer SELFPAY ==
[2022-09-08] MEDS ORDERED: Sodium Chloride 0.9% 2.5 ML Syringe FLUSH PRN (10:56)
[2022-09-08] MEDS ORDERED: Sodium Chloride 0.9% 10 ML Syringe FLUSH PRN (10:56)
[2022-09-08] MEDS ORDERED: LORazepam 2 MG/ML SDV IVPUSH ONE ×3 (10:57→13:59)
[2022-09-08 11:25] LABS: A/G RATIO 0.9 (0.9-1.6); ALANINE AMINOTRANSFERASE,ALT 107 IU/L (14-63); ALKALINE PHOSPHATASE 147 U/L (46-116); ASPARTATE AMNIOTRANSFERASE,AST 137 IU/L (15-37); BILIRUBIN TOTAL 2.3 mg/dL (0.2-1.0); BLOOD UREA NITROGEN,BUN 13 mg/dL (7.0-18.0); CARBON DIOXIDE,CO2 27.6 mmol/L (21.0-32.0); CHLORIDE,CL 92 mmol/L (98-107); CREATINE KINASE,CK 193 U/L (26-308); CREATININE 1.3 mg/dL (0.8-1.3); EST CRCL DRUG DOSING (CG) 56.87 mL/min; ETHANOL BLOOD MEDICAL <3 mg/dL; GLUCOSE RANDOM 197 mg/dL (74-106); LIPASE 237 U/L (73-393); POTASSIUM,K 2.5 mmol/L (3.5-5.1); PROTEIN TOTAL,TP 8.4 g/dL (6.4-8.2); SODIUM,NA 141 mmol/L (136-148)
[2022-09-08 11:27] LABS: ESTIMATED GFR 72 mL/min (>60)
[2022-09-08] MEDS ORDERED: Potassium Chloride 20 MEQ Tab.ER PO ONE (11:33)
[2022-09-08 11:54] LABS: BASOPHILS PERCENT AUTO 0.2 % (0.0-1.5); EOSINOPHILS PERCENT AUTO 0.2 % (0.0-7.0); HEMATOCRIT 48.2 % (38.0-50.0); LYMPHOCYTES ABSOLUTE AUTO 0.6 K/uL (0.6-2.4); LYMPHOCYTES PERCENT AUTO 10.9 % (16.0-40.0); MEAN CORPUSCULAR HEMOGLOBIN 34.5 pg (27.0-32.0); MEAN CORPUSCULAR HGB CONC 35.3 g/dL (31.0-37.0); MEAN CORPUSCULAR VOLUME 97.8 fL (80.0-98.0); MONOCYTES ABSOLUTE AUTO 0.9 K/uL (0.0-0.8); MONOCYTES PERCENT AUTO 16.8 % (0.0-15.0); NEUTROPHILS ABSOLUTE AUTO 3.6 K/uL (1.4-5.7); NEUTROPHILS PERCENT AUTO 71.9 % (48.0-80.0); NRBC ABSOLUTE 0 K/uL; RED BLOOD CELL COUNT 4.93 M/uL (4.50-5.90); WHITE BLOOD CELL COUNT,WBC 5.05 K/uL (4.0-11.0)
[2022-09-08 12:05] LABS: PLATELET COUNT,PLT 75 K/uL (150-400)
[2022-09-08 12:06] LABS: INR 1.03 (0.86-1.11)
[2022-09-08 12:17] LABS: CALCIUM 9.8 mg/dL (8.5-10.1); CARBON DIOXIDE,CO2 30.2 mmol/L (21.0-32.0); EST CRCL DRUG DOSING (CG) 73.93 mL/min; POTASSIUM,K 2.8 mmol/L (3.5-5.1)
[2022-09-08] MEDS ORDERED: Magnesium Sulfate (4.06 MEQ/ML) 5 GM/10 ML SDV IV STA (12:59)
[2022-09-08] MEDS ORDERED: Sodium Chloride 0.9% 250 ML IV ONE (13:15)
[2022-09-08] MEDS ORDERED: Potassium Chloride 20 MEQ in Premix Bag 1 BAG IV ONE (13:15)
[2022-09-08] MEDS ORDERED: Sodium Chloride 0.9% 1,000 ML IV ONE ×2 (13:18)
[2022-09-08] MEDS ORDERED: Thiamine 200 MG/2 ML MDV IVPUSH ONE (13:18)
[2022-09-08] MEDS ORDERED: Magnesium Sulfate/Water 2 GM in Premix Bag 1 BAG IV ONE (13:21)
[2022-09-08] MEDS: Folic Acid 1 MG/0.2 ML UD Syringe IV SCH (13:36)
[2022-09-08] MEDS ORDERED: LORazepam 2 MG/ML SDV ONE ×3 (13:51→16:15)
[2022-09-08] MEDS ORDERED: Ondansetron 4 MG/2 ML SDV IVPUSH PRN (17:18)
[2022-09-08] MEDS ORDERED: Sodium Chloride 0.9% 500 ML IV SCH (19:30)
[2022-09-08] MEDS: LORazepam 2 MG/ML SDV IVPUSH PRN ×2 (20:00→23:20)
[2022-09-08] MEDS: Potassium Chloride 100 ML IV SCH ×2 (20:07→22:05)
[2022-09-08 20:31] LABS: COLOR,URINE DARK YELLOW; GLUCOSE,URINE NEGATIVE (NEGATIVE); KETONES,URINE 40 mg/dL (NEGATIVE); LEUKOCYTE ESTERASE,URINE NEGATIVE (NEGATIVE); NITRITE,URINE NEGATIVE (NEGATIVE); OCCULT BLOOD,URINE NEGATIVE (NEGATIVE); PROTEIN,URINE NEGATIVE (NEGATIVE); UROBILINOGEN,URINE >=8.0 EU/dL (<2.0)
[2022-09-08 20:35] LABS: APPEARANCE,URINE CLEAR; BILIRUBIN,URINE SMALL (NEGATIVE)
[2022-09-08 20:41] LABS: AMPHETAMINES SCREEN, URINE NEGATIVE (CUTOFF=500); BARBITURATE SCREEN,URINE NEGATIVE (CUTOFF=200); BENZODIAZEPINES SCREEN,URINE PRESUMPTIVE POSITIVE (CUTOFF=150); BUPRENORPHINE SCREEN,URINE NEGATIVE (CUTOFF=10); METHADONE SCREEN, URINE NEGATIVE (CUTOFF=200); METHAMPHETAMINES SCREEN, URINE NEGATIVE (CUTOFF=500); OXYCODONE SCREEN,URINE NEGATIVE (CUT0FF=100); PCP SCREEN,URINE NEGATIVE (CUTOFF=25); PROPOXYPHENE SCREEN,URINE NEGATIVE (CUTOFF=300); THC SCREEN,URINE 20 NG/ML NEGATIVE (CUTOFF=50)
[2022-09-09] MEDS: LORazepam 2 MG/ML SDV IVPUSH PRN (03:48)
[2022-09-09 06:33] LABS: A/G RATIO 0.8 (0.9-1.6); ALBUMIN 2.9 g/dL (3.4-5.0); BILIRUBIN TOTAL 1.6 mg/dL (0.2-1.0); CALCIUM 8.4 mg/dL (8.5-10.1); CARBON DIOXIDE,CO2 26.4 mmol/L (21.0-32.0); CREATININE 0.6 mg/dL (0.8-1.3); EST CRCL DRUG DOSING (CG) 127.58 mL/min; POTASSIUM,K 3.3 mmol/L (3.5-5.1); PROTEIN TOTAL,TP 6.5 g/dL (6.4-8.2); TSH ULTRASENSITIVE 1.23 uIU/mL (0.36-3.74)
[2022-09-09] MEDS ORDERED: Potassium Chloride 20 MEQ Tab.ER PO ONE (08:08)
[2022-09-09] MEDS: Folic Acid 1 MG/0.2 ML UD Syringe IV SCH (08:27)
[2022-09-09] MEDS ORDERED: Thiamine 200 MG/2 ML MDV IVPUSH SCH (09:00)
[2022-09-09] MEDS ORDERED: Folic Acid 1 MG Tab PO SCH (09:00)
[2022-09-09 09:19] LABS: BASOPHILS PERCENT AUTO 0.3 % (0.0-1.5); EOSINOPHILS PERCENT AUTO 0.4 % (0.0-7.0); HEMATOCRIT 42.8 % (38.0-50.0); HEMOGLOBIN 14.6 g/dL (13.0-17.0); LYMPHOCYTES ABSOLUTE AUTO 0.9 K/uL (0.6-2.4); LYMPHOCYTES PERCENT AUTO 10.8 % (16.0-40.0); MEAN CORPUSCULAR HEMOGLOBIN 34.1 pg (27.0-32.0); MEAN CORPUSCULAR HGB CONC 34.1 g/dL (31.0-37.0); MONOCYTES ABSOLUTE AUTO 0.8 K/uL (0.0-0.8); MONOCYTES PERCENT AUTO 9.8 % (0.0-15.0); NEUTROPHILS ABSOLUTE AUTO 6.2 K/uL (1.4-5.7); NEUTROPHILS PERCENT AUTO 78.7 % (48.0-80.0); NRBC ABSOLUTE 0 K/uL; PLATELET COUNT,PLT 51 K/uL (150-400); RED BLOOD CELL COUNT 4.28 M/uL (4.50-5.90); WHITE BLOOD CELL COUNT,WBC 7.84 K/uL (4.0-11.0)
[2022-09-09] MEDS ORDERED: Diazepam 2 MG Tab PO SCH (10:00)
[2022-09-09] MEDS ORDERED: Sodium Chloride 0.9% 10 ML Syringe FLUSH PRN (10:34)
[2022-09-09] MEDS ORDERED: Acetaminophen 325 MG Tab PO PRN (10:34)
[2022-09-09] MEDS ORDERED: Sodium Chloride 0.9% 2.5 ML Syringe FLUSH PRN (10:34)
[2022-09-09] MEDS ORDERED: Pantoprazole 40 MG in Sodium Chloride 0.9% 10 ML IVPUSH SCH (10:45)
[2022-09-10] MEDS ORDERED: Folic Acid 1 MG/0.2 ML UD Syringe IV SCH (09:00)
== END 2022-09-09 12:45 | disposition left against medical advice (07) | DRG 894 ==
LOC: MW.ED 10:48 → MW.MS 14:01 → MW.ICU 15:00 → OBSVTOIN 09-09 10:53
PROVIDERS: ADMIT Internal Medicine; ATTEND Internal Medicine
DX: F10.231 Alcohol dependence with withdrawal delirium (principal); R74.01 Elevation of levels of liver transaminase levels; E87.6 Hypokalemia; E80.6 Other disorders of bilirubin metabolism; D69.6 Thrombocytopenia, unspecified; F17.210 Nicotine dependence, cigarettes, uncomplicated; S01.91XA Laceration without foreign body of unspecified part of head, initial encounter; G40.909 Epilepsy, unspecified, not intractable, without status epilepticus; W18.30XA Fall on same level, unspecified, initial encounter; N28.9 Disorder of kidney and ureter, unspecified; Z79.899 Other long term (current) drug therapy
CPT/HCPCS: 36415; 70450; 70450-26; 71045; 71045-26; 72125; 72125-26; 80048; 80053; 80305-QW; 80307; 81003; 82550; 82947; 83690; 83735; 84132; 84443; 84484; 85025; 85610; 93005; 93010; 96365; 96366; 96368; 96375; 96376; 99285-25; 99291; A9270-GY; C9113; G0378; J2060; J3411; J3475; J3480; J3490; J7030; J7040; J7050; U0002

== ENCOUNTER 2022-09-19 19:32 | Emergency (ER) | payer SELFPAY | END 2022-09-19 20:17 | LOC: MW.ED 19:32 | DX: Z02.89 Encounter for other administrative examinations (principal) | CPT/HCPCS: 99282 ==

== ENCOUNTER 2022-09-22 02:20 | Emergency (ER) | payer OTHER ==
[2022-09-22] MEDS ORDERED: Sodium Chloride 0.9% 1,000 ML IV ONE (02:23)
[2022-09-22] MEDS ORDERED: LORazepam 2 MG/ML SDV IVPUSH ONE ×3 (02:32→03:49)
[2022-09-22] MEDS ORDERED: Folic Acid 1 MG/0.2 ML UD Syringe IV STA (02:39)
[2022-09-22] MEDS ORDERED: Thiamine 200 MG/2 ML MDV IVPUSH ONE (02:39)
[2022-09-22] MEDS ORDERED: Erythromycin Base 0.5% Ophth Oint 1 GM Tube EYERT ONE (03:06)
[2022-09-22 03:56] LABS: BASOPHILS PERCENT AUTO 0.2 % (0.0-1.5); EOSINOPHILS PERCENT AUTO 0.5 % (0.0-7.0); HEMATOCRIT 40.5 % (38.0-50.0); HEMOGLOBIN 14.1 g/dL (13.0-17.0); LYMPHOCYTES ABSOLUTE AUTO 0.9 K/uL (0.6-2.4); LYMPHOCYTES PERCENT AUTO 15.5 % (16.0-40.0); MEAN CORPUSCULAR HEMOGLOBIN 33.5 pg (27.0-32.0); MEAN CORPUSCULAR HGB CONC 34.8 g/dL (31.0-37.0); MEAN CORPUSCULAR VOLUME 96.2 fL (80.0-98.0); MONOCYTES ABSOLUTE AUTO 0.7 K/uL (0.0-0.8); MONOCYTES PERCENT AUTO 12.5 % (0.0-15.0); NEUTROPHILS PERCENT AUTO 71.3 % (48.0-80.0); NRBC ABSOLUTE 0 K/uL; PLATELET COUNT,PLT 82 K/uL (150-400); RED BLOOD CELL COUNT 4.21 M/uL (4.50-5.90); WHITE BLOOD CELL COUNT,WBC 5.54 K/uL (4.0-11.0)
[2022-09-22 04:14] LABS: INR 1.09 (0.86-1.11); PTT,PARTIAL THROMBOPLSTIN TIME 28.8 SEC (23.9-30.7)
[2022-09-22 04:25] LABS: LACTIC ACID 1.6 mmol/L (0.4-2.0)
[2022-09-22 04:28] LABS: A/G RATIO 0.9 (0.9-1.6); ALANINE AMINOTRANSFERASE,ALT 66 IU/L (14-63); ALBUMIN 3.3 g/dL (3.4-5.0); ALKALINE PHOSPHATASE 117 U/L (46-116); ASPARTATE AMNIOTRANSFERASE,AST 108 IU/L (15-37); BILIRUBIN TOTAL 1.3 mg/dL (0.2-1.0); BLOOD UREA NITROGEN,BUN 15 mg/dL (7.0-18.0); CARBON DIOXIDE,CO2 33.2 mmol/L (21.0-32.0); CHLORIDE,CL 90 mmol/L (98-107); CREATININE 0.7 mg/dL (0.8-1.3); GLUCOSE RANDOM 135 mg/dL (74-106); MAGNESIUM 1.4 mg/dL (1.8-2.4); POTASSIUM,K 2.9 mmol/L (3.5-5.1); PROTEIN TOTAL,TP 7.1 g/dL (6.4-8.2); SODIUM,NA 133 mmol/L (136-148)
[2022-09-22 04:29] LABS: ESTIMATED GFR 120 mL/min (>60); ETHANOL BLOOD MEDICAL < 3.0 mg/dL
[2022-09-22] MEDS ORDERED: Magnesium Sulfate/Water 2 GM in Premix Bag 1 BAG IV ONE (04:35)
[2022-09-22] MEDS ORDERED: Sodium Chloride 0.9% 250 ML IV SCH (04:45)
[2022-09-22] MEDS ORDERED: Potassium Chloride 100 ML IV SCH (04:45)
[2022-09-22] MEDS ORDERED: Haloperidol Lactate 5 MG/ML SDV IM ONE (05:09)
[2022-09-22 07:33] LABS: APPEARANCE,URINE CLEAR; BILIRUBIN,URINE NEGATIVE (NEGATIVE); COLOR,URINE YELLOW; GLUCOSE,URINE NEGATIVE (NEGATIVE); KETONES,URINE 15 mg/dL (NEGATIVE); LEUKOCYTE ESTERASE,URINE NEGATIVE (NEGATIVE); NITRITE,URINE NEGATIVE (NEGATIVE); OCCULT BLOOD,URINE NEGATIVE (NEGATIVE); PH,URINE 7.5 (5.0-8.0); PROTEIN,URINE NEGATIVE (NEGATIVE)
[2022-09-22 07:42] LABS: AMPHETAMINES SCREEN, URINE NEGATIVE (CUTOFF=500); BARBITURATE SCREEN,URINE NEGATIVE (CUTOFF=200); BENZODIAZEPINES SCREEN,URINE PRESUMPTIVE POSITIVE (CUTOFF=150); BUPRENORPHINE SCREEN,URINE NEGATIVE (CUTOFF=10); METHADONE SCREEN, URINE NEGATIVE (CUTOFF=200); METHAMPHETAMINES SCREEN, URINE NEGATIVE (CUTOFF=500); OXYCODONE SCREEN,URINE NEGATIVE (CUT0FF=100); PCP SCREEN,URINE NEGATIVE (CUTOFF=25); PROPOXYPHENE SCREEN,URINE NEGATIVE (CUTOFF=300); THC SCREEN,URINE 20 NG/ML NEGATIVE (CUTOFF=50)
== END 2022-09-22 07:05 ==
LOC: MW.ED 02:20
DX: S06.30AA Unspecified focal traumatic brain injury with loss of consciousness status unknown, initial encounter (principal); S01.01XA Laceration without foreign body of scalp, initial encounter; R56.9 Unspecified convulsions; F10.231 Alcohol dependence with withdrawal delirium; E87.6 Hypokalemia; E83.42 Hypomagnesemia; D69.6 Thrombocytopenia, unspecified; R74.01 Elevation of levels of liver transaminase levels; H10.9 Unspecified conjunctivitis; W18.30XA Fall on same level, unspecified, initial encounter
CPT/HCPCS: 36415; 70450; 72125; 80053; 80305; 80307; 81003; 83605; 83735; 84443; 85025; 85610; 85730; 93005; 96361; 96365; 96367; 96372; 96375; 99285; A9270; J1630; J1953; J2060; J3411; J3475; J7030; J7060; 12001; 93010; 99291; 99292; J3490

== ENCOUNTER 2023-04-03 10:42 | Emergency (ER) | payer SELFPAY | END 2023-04-03 11:46 | LOC: MW.ED 10:42 | DX: F10.20 Alcohol dependence, uncomplicated (principal); Z02.89 Encounter for other administrative examinations | CPT/HCPCS: 82947; 99282; 99283 ==

== ENCOUNTER 2023-05-19 10:49 | Emergency (ER) | payer SELFPAY ==
[2023-05-19] MEDS ORDERED: Sodium Chloride 0.9% 1,000 ML IV ONE (11:55)
[2023-05-19 13:13] LABS: HEMATOCRIT 40.4 % (42.0-52.0); HEMOGLOBIN 13.8 g/dL (14.0-18.0); MEAN CORPUSCULAR HEMOGLOBIN 33.6 pg (28.0-32.0); MEAN CORPUSCULAR HGB CONC 34.2 g/dL (32.0-36.0); MEAN CORPUSCULAR VOLUME 98.3 fL (83.0-99.0); MEAN PLATELET VOLUME 8.9 fL (9.4-12.4); PLATELET COUNT,PLT 197 K/uL (150-400); RED BLOOD CELL COUNT 4.11 M/uL (4.52-5.90); WHITE BLOOD CELL COUNT,WBC 12.16 K/uL (3.9-11.3)
[2023-05-19] MEDS ORDERED: chlordiazePOXIDE 25 MG Cap PO ONE (13:25)
[2023-05-19 13:43] LABS: ALANINE AMINOTRANSFERASE,ALT 20 IU/L (14-63); ALBUMIN 3.8 g/dL (3.4-5.0); ALKALINE PHOSPHATASE 82 U/L (46-116); ASPARTATE AMNIOTRANSFERASE,AST 19 IU/L (15-37); BLOOD UREA NITROGEN,BUN 17 mg/dL (7.0-18.0); CALCIUM 9.2 mg/dL (8.5-10.1); CARBON DIOXIDE,CO2 25.5 mmol/L (21.0-32.0); CHLORIDE,CL 99 mmol/L (98-107); CREATININE 0.7 mg/dL (0.8-1.3); EST CRCL DRUG DOSING (CG) 111.31 mL/min; ESTIMATED GFR 119 mL/min (>60); ETHANOL BLOOD MEDICAL < 3.0 mg/dL; GLUCOSE RANDOM 69 mg/dL (74-106); MAGNESIUM 2.2 mg/dL (1.8-2.4); POTASSIUM,K 3.2 mmol/L (3.5-5.1); PROTEIN TOTAL,TP 7.7 g/dL (6.4-8.2); SODIUM,NA 138 mmol/L (136-148)
[2023-05-19] MEDS ORDERED: Potassium Chloride 20 MEQ Tab.ER PO ONE (13:45)
[2023-05-19 13:51] LABS: BAND PERCENT MAN 0 %; LYMPHOCYTES ABSOLUTE MAN 1.46 K/uL (1.00-4.80); LYMPHOCYTES PERCENT MAN 12 % (24-44); MONOCYTES ABSOLUTE MAN 2.31 K/uL (0.00-0.80); MONOCYTES PERCENT MAN 19 % (0-8); SEG NEUTROPHILS ABSOLUTE MAN 8.39 K/uL (1.80-7.70); SEG NEUTROPHILS PERCENT MAN 69 % (41-71)
== END 2023-05-19 14:43 | disposition home or self-care (01) ==
LOC: MW.ED 10:49
DX: F10.132 Alcohol abuse with withdrawal with perceptual disturbance (principal); Y90.8 Blood alcohol level of 240 mg/100 ml or more
CPT/HCPCS: 36415; 70450; 80053; 80307; 82947; 83735; 85025; 96360; 99285; A9270; J7030; 99283

== ENCOUNTER 2023-07-17 01:22 | Emergency (ER) | payer MEDICAID | END 2023-07-17 01:46 | LOC: MW.ED 01:22 | DX: F10.20 Alcohol dependence, uncomplicated (principal); Z75.8 Other problems related to medical facilities and other health care | CPT/HCPCS: 82947; 99282; 99283 ==

== ENCOUNTER 2023-08-07 11:51 | Emergency (ER) | payer MEDICAID | END 2023-08-07 13:08 | LOC: MW.ED 11:51 | DX: I10 Essential (primary) hypertension; Z75.8 Other problems related to medical facilities and other health care | CPT/HCPCS: 99282; 99283 ==

== ENCOUNTER 2023-08-07 21:40 | Emergency (ER) | payer MEDICAID | END 2023-08-07 22:30 | LOC: MW.ED 21:40 | DX: I10 Essential (primary) hypertension (principal); Z75.8 Other problems related to medical facilities and other health care | CPT/HCPCS: 99283 ==

== ENCOUNTER 2023-08-12 23:32 | Emergency (ER) | payer MEDICAID ==
[2023-08-13 00:29] LABS: BASOPHILS ABSOLUTE AUTO 0.04 K/uL (0.00-0.20); BASOPHILS PERCENT AUTO 0.4 % (0.0-1.0); EOSINOPHILS ABSOLUTE AUTO 0.36 K/uL (0.00-0.45); EOSINOPHILS PERCENT AUTO 3.8 % (0.0-6.0); HEMATOCRIT 46.7 % (42.0-52.0); IMMATURE GRAN ABSOLUTE AUTO 0.03 K/uL (0.00-0.05); IMMATURE GRAN PERCENT AUTO 0.3 % (0.0-0.4); LYMPHOCYTES ABSOLUTE AUTO 3.53 K/uL (1.00-4.80); LYMPHOCYTES PERCENT AUTO 36.8 % (24.0-44.0); MEAN CORPUSCULAR HEMOGLOBIN 33.3 pg (28.0-32.0); MEAN CORPUSCULAR HGB CONC 34.3 g/dL (32.0-36.0); MEAN CORPUSCULAR VOLUME 97.3 fL (83.0-99.0); MEAN PLATELET VOLUME 8.5 fL (9.4-12.4); MONOCYTES ABSOLUTE AUTO 1.35 K/uL (0.00-0.80); MONOCYTES PERCENT AUTO 14.1 % (0.0-8.0); NEUTROPHILS ABSOLUTE AUTO 4.29 K/uL (1.80-7.70); NEUTROPHILS PERCENT AUTO 44.6 % (41.0-71.0); PLATELET COUNT,PLT 300 K/uL (150-400)
[2023-08-13 01:00] LABS: ALBUMIN 3.9 g/dL (3.4-5.0); BILIRUBIN TOTAL 0.3 mg/dL (0.2-1.0); CALCIUM 10.1 mg/dL (8.5-10.1); CARBON DIOXIDE,CO2 29.8 mmol/L (21.0-32.0); CREATININE 0.8 mg/dL (0.8-1.3); EST CRCL DRUG DOSING (CG) 106.77 mL/min; POTASSIUM,K 4.9 mmol/L (3.5-5.1); PROTEIN TOTAL,TP 7.9 g/dL (6.4-8.2)
== END 2023-08-13 01:25 ==
LOC: MW.ED 23:32
DX: I10 Essential (primary) hypertension (principal); F17.210 Nicotine dependence, cigarettes, uncomplicated; Z79.899 Other long term (current) drug therapy; Z75.8 Other problems related to medical facilities and other health care
CPT/HCPCS: 36415; 71045; 71045-26; 80053; 84484; 85025; 93005; 93010; 99283; 99285

== ENCOUNTER 2024-02-01 19:29 | Emergency (ER) | payer SELFPAY | END 2024-02-01 20:00 | LOC: MW.ED 19:29 | DX: Z02.89 Encounter for other administrative examinations (principal); I10 Essential (primary) hypertension; Z75.8 Other problems related to medical facilities and other health care | CPT/HCPCS: 99283 ==

== ENCOUNTER 2024-02-02 13:03 | Inpatient (IN) | payer SELFPAY ==
[2024-02-02 13:18] LABS: BASOPHILS ABSOLUTE AUTO 0.04 K/uL (0.00-0.20); BASOPHILS PERCENT AUTO 0.6 % (0.0-1.0); EOSINOPHILS ABSOLUTE AUTO 0.04 K/uL (0.00-0.45); EOSINOPHILS PERCENT AUTO 0.6 % (0.0-6.0); HEMATOCRIT 46.4 % (42.0-52.0); HEMOGLOBIN 16.6 g/dL (14.0-18.0); IMMATURE GRAN ABSOLUTE AUTO 0.01 K/uL (0.00-0.05); IMMATURE GRAN PERCENT AUTO 0.2 % (0.0-0.4); LYMPHOCYTES PERCENT AUTO 20.4 % (24.0-44.0); MEAN CORPUSCULAR HEMOGLOBIN 33.5 pg (28.0-32.0); MEAN CORPUSCULAR HGB CONC 35.8 g/dL (32.0-36.0); MEAN CORPUSCULAR VOLUME 93.5 fL (83.0-99.0); MEAN PLATELET VOLUME 7.9 fL (9.4-12.4); MONOCYTES ABSOLUTE AUTO 1.27 K/uL (0.00-0.80); NEUTROPHILS PERCENT AUTO 58.2 % (41.0-71.0); PLATELET COUNT,PLT 301 K/uL (150-400); RED BLOOD CELL COUNT 4.96 M/uL (4.52-5.90); WHITE BLOOD CELL COUNT,WBC 6.36 K/uL (3.9-11.3)
[2024-02-02 13:59] LABS: INR 0.95 (0.86-1.11)
[2024-02-02 14:04] LABS: ACETAMINOPHEN <2.0 ug/mL; ALANINE AMINOTRANSFERASE,ALT 50 IU/L (14-63); ALKALINE PHOSPHATASE 83 U/L (46-116); ASPARTATE AMNIOTRANSFERASE,AST 46 IU/L (15-37); BILIRUBIN TOTAL 0.9 mg/dL (0.2-1.0); BLOOD UREA NITROGEN,BUN 10 mg/dL (7.0-18.0); CARBON DIOXIDE,CO2 31.3 mmol/L (21.0-32.0); CHLORIDE,CL 99 mmol/L (98-107); CREATININE 0.8 mg/dL (0.8-1.3); EST CRCL DRUG DOSING (CG) 109.15 mL/min; ETHANOL BLOOD MEDICAL <3 mg/dL; GLUCOSE RANDOM 143 mg/dL (74-106); LIPASE 20 U/L (16-77); MAGNESIUM 1.6 mg/dL (1.8-2.4); POTASSIUM,K 4.1 mmol/L (3.5-5.1); SALICYLATE 2.2 mg/dL (0.0-20.0); SODIUM,NA 142 mmol/L (136-148); TSH ULTRASENSITIVE 2.57 uIU/mL (0.36-3.74)
[2024-02-02 14:08] LABS: ESTIMATED GFR 114 mL/min (>60)
[2024-02-02 14:42] LABS: GLUCOSE,URINE NEGATIVE (NEGATIVE); KETONES,URINE 40 mg/dL (NEGATIVE); LEUKOCYTE ESTERASE,URINE NEGATIVE (NEGATIVE); NITRITE,URINE NEGATIVE (NEGATIVE); OCCULT BLOOD,URINE NEGATIVE (NEGATIVE); PH,URINE 6.5 (5.0-8.0); PROTEIN,URINE TRACE mg/dL (NEGATIVE)
[2024-02-02 14:45] LABS: APPEARANCE,URINE HAZY; BILIRUBIN,URINE MODERATE (NEGATIVE); COLOR,URINE DARK YELLOW
[2024-02-02] MEDS: Diazepam 5 MG Tab PO ONE (14:51)
[2024-02-02] MEDS: Thiamine 100 MG Tab PO ONE (14:51)
[2024-02-02] MEDS: Multivitamin Tab PO ONE (14:51)
[2024-02-02] MEDS: Folic Acid 1 MG Tab PO ONE (14:51)
[2024-02-02 14:52] LABS: AMPHETAMINES SCREEN, URINE NEGATIVE (CUTOFF=500); BARBITURATE SCREEN,URINE NEGATIVE (CUTOFF=200); BENZODIAZEPINES SCREEN,URINE NEGATIVE (CUTOFF=150); BUPRENORPHINE SCREEN,URINE NEGATIVE (CUTOFF=10); METHADONE SCREEN, URINE NEGATIVE (CUTOFF=200); METHAMPHETAMINES SCREEN, URINE NEGATIVE (CUTOFF=500); OXYCODONE SCREEN,URINE NEGATIVE (CUT0FF=100); PCP SCREEN,URINE NEGATIVE (CUTOFF=25); THC SCREEN,URINE 20 NG/ML NEGATIVE (CUTOFF=50)
[2024-02-02] MEDS: Sodium Chloride 0.9% 1,000 ML IV ONE ×2 (14:52→15:41)
[2024-02-02] MEDS: Sodium Chloride 0.9% 10 ML Syringe FLUSH PRN (14:53)
[2024-02-02 14:54] LABS: BACTERIA,URINE FEW (NEGATIVE); EPITHELIAL CELLS,URINE FEW (NONE-FEW); MUCUS,URINE LIGHT (NONE-MOD); RBC,URINE 0-2 (0-2/HPF); WBC,URINE 0-3 (0-5/HPF)
[2024-02-02] MEDS: Magnesium Sulfate/Water Premix 2 GM in Premix Bag 1 BAG IV ONE (15:44)
[2024-02-02] MEDS: PHENobarbitaL sodium 260 MG in Sodium Chloride 0.9% 100 ML IV ONE (15:48)
[2024-02-02] MEDS ORDERED: Ondansetron 4 MG Tab.DIS PO PRN (15:56)
[2024-02-02] MEDS ORDERED: LORazepam 2 MG/ML SDV IVPUSH PRN (15:56)
[2024-02-02] MEDS ORDERED: PHENobarbital Sodium 130 MG/ML SDV IVPUSH PRN (16:09)
[2024-02-02] MEDS ORDERED: PHENobarbital 32.4 MG Tab PO PRN (16:27)
[2024-02-02] MEDS: Sodium Chloride 0.9% 1,000 ML IV SCH (17:08)
[2024-02-02] MEDS: Acetaminophen 325 MG Tab PO PRN (19:45)
[2024-02-02] MEDS: PHENobarbital 32.4 MG Tab PO PRN (19:46)
[2024-02-03 05:31] LABS: BASOPHILS ABSOLUTE AUTO 0.03 K/uL (0.00-0.20); BASOPHILS PERCENT AUTO 0.3 % (0.0-1.0); EOSINOPHILS PERCENT AUTO 1.1 % (0.0-6.0); HEMATOCRIT 43.7 % (42.0-52.0); HEMOGLOBIN 15.4 g/dL (14.0-18.0); IMMATURE GRAN ABSOLUTE AUTO 0.01 K/uL (0.00-0.05); IMMATURE GRAN PERCENT AUTO 0.1 % (0.0-0.4); LYMPHOCYTES ABSOLUTE AUTO 1.81 K/uL (1.00-4.80); LYMPHOCYTES PERCENT AUTO 20.7 % (24.0-44.0); MEAN CORPUSCULAR HEMOGLOBIN 33.3 pg (28.0-32.0); MEAN CORPUSCULAR HGB CONC 35.2 g/dL (32.0-36.0); MEAN CORPUSCULAR VOLUME 94.4 fL (83.0-99.0); MEAN PLATELET VOLUME 8.3 fL (9.4-12.4); NEUTROPHILS ABSOLUTE AUTO 5.41 K/uL (1.80-7.70); NEUTROPHILS PERCENT AUTO 61.8 % (41.0-71.0); PLATELET COUNT,PLT 273 K/uL (150-400); RED BLOOD CELL COUNT 4.63 M/uL (4.52-5.90); WHITE BLOOD CELL COUNT,WBC 8.76 K/uL (3.9-11.3)
[2024-02-03 06:23] LABS: A/G RATIO 0.9 (0.9-1.6); ALBUMIN 3.2 g/dL (3.4-5.0); CALCIUM 8.2 mg/dL (8.5-10.1); CARBON DIOXIDE,CO2 28.9 mmol/L (21.0-32.0); CREATININE 0.7 mg/dL (0.8-1.3); EST CRCL DRUG DOSING (CG) 122.77 mL/min; MAGNESIUM 1.6 mg/dL (1.8-2.4); POTASSIUM,K 4.1 mmol/L (3.5-5.1); PROTEIN TOTAL,TP 6.8 g/dL (6.4-8.2)
[2024-02-03] MEDS: Pantoprazole 40 MG Tab.CR PO SCH (07:45)
[2024-02-03] MEDS: Folic Acid 1 MG/0.2 ML UD Syringe IV SCH (08:42)
[2024-02-03] MEDS: Thiamine 200 MG/2 ML MDV IVPUSH SCH (08:42)
[2024-02-03] MEDS: Nicotine 14 MG/24 Hr Patch TRDERM SCH (08:43)
[2024-02-03] MEDS: Magnesium Sulfate/Water Premix 2 GM in Premix Bag 1 BAG IV ONE (21:07)
[2024-02-04] MEDS: PHENobarbital 32.4 MG Tab PO PRN (03:39)
[2024-02-04] MEDS: LORazepam 2 MG/ML SDV IVPUSH PRN (04:16)
[2024-02-04] MEDS: LORazepam 2 MG/ML SDV IVPUSH ONE (04:37)
[2024-02-04] MEDS: PHENobarbital Sodium 130 MG/ML SDV ONE (05:11)
[2024-02-04] MEDS: SODIUM CHLORIDE 0.9% IV ONE (05:12)
[2024-02-04] MEDS: PHENOBARBITAL SODIUM IV ONE (05:12)
[2024-02-04 06:02] LABS: BASOPHILS ABSOLUTE AUTO 0.02 K/uL (0.00-0.20); BASOPHILS PERCENT AUTO 0.2 % (0.0-1.0); EOSINOPHILS ABSOLUTE AUTO 0.13 K/uL (0.00-0.45); EOSINOPHILS PERCENT AUTO 1.3 % (0.0-6.0); HEMATOCRIT 45.9 % (42.0-52.0); IMMATURE GRAN ABSOLUTE AUTO 0.03 K/uL (0.00-0.05); IMMATURE GRAN PERCENT AUTO 0.3 % (0.0-0.4); LYMPHOCYTES ABSOLUTE AUTO 1.68 K/uL (1.00-4.80); LYMPHOCYTES PERCENT AUTO 16.6 % (24.0-44.0); MEAN CORPUSCULAR HEMOGLOBIN 32.7 pg (28.0-32.0); MEAN CORPUSCULAR HGB CONC 34.9 g/dL (32.0-36.0); MEAN CORPUSCULAR VOLUME 93.7 fL (83.0-99.0); MEAN PLATELET VOLUME 8.6 fL (9.4-12.4); MONOCYTES ABSOLUTE AUTO 1.26 K/uL (0.00-0.80); MONOCYTES PERCENT AUTO 12.5 % (0.0-8.0); NEUTROPHILS PERCENT AUTO 69.1 % (41.0-71.0); PLATELET COUNT,PLT 285 K/uL (150-400); WHITE BLOOD CELL COUNT,WBC 10.12 K/uL (3.9-11.3)
[2024-02-04] MEDS: Diazepam 2 MG Tab PO SCH (06:23)
[2024-02-04 06:34] LABS: A/G RATIO 0.9 (0.9-1.6); ALBUMIN 3.3 g/dL (3.4-5.0); BILIRUBIN TOTAL 0.6 mg/dL (0.2-1.0); CARBON DIOXIDE,CO2 26.5 mmol/L (21.0-32.0); CREATININE 0.8 mg/dL (0.8-1.3); EST CRCL DRUG DOSING (CG) 109.66 mL/min; POTASSIUM,K 3.4 mmol/L (3.5-5.1); PROTEIN TOTAL,TP 7.1 g/dL (6.4-8.2)
== END 2024-02-04 14:00 | disposition left against medical advice (07) | DRG 894 ==
LOC: MW.ED 13:03 → MW.ICU 15:08 → MW.MS 02-03 10:26
PROVIDERS: ADMIT Internal Medicine; ATTEND Internal Medicine
DX: F10.231 Alcohol dependence with withdrawal delirium (principal); F10.232 Alcohol dependence with withdrawal with perceptual disturbance; I10 Essential (primary) hypertension; E86.0 Dehydration; E83.42 Hypomagnesemia; G40.409 Other generalized epilepsy and epileptic syndromes, not intractable, without status epilepticus
CPT/HCPCS: 36415; 70450; 70450-26; 80053; 80143; 80179; 80305-QW; 80307; 81001; 83690; 83735; 84100; 84439; 84443; 84481; 85025; 85610; 93005; 93010; 99223; 99232; 99239; 99285; A9270-GY; J2060; J2560; J3411; J3475; J3490; J7030

== ENCOUNTER 2024-02-06 03:10 | Emergency (ER) | payer SELFPAY | END 2024-02-06 03:29 | disposition home or self-care (01) | LOC: MW.ED 03:10 | DX: F10.129 Alcohol abuse with intoxication, unspecified (principal); I10 Essential (primary) hypertension; Z91.018 Allergy to other foods; Z75.8 Other problems related to medical facilities and other health care | CPT/HCPCS: 99285 ==

== ENCOUNTER 2024-03-22 18:20 | Emergency (ER) | payer SELFPAY | END 2024-03-22 19:38 | disposition home or self-care (01) | LOC: MW.ED 18:20 | DX: Z02.89 Encounter for other administrative examinations (principal); I10 Essential (primary) hypertension; F17.210 Nicotine dependence, cigarettes, uncomplicated; Z88.8 Allergy status to other drugs, medicaments and biological substances | CPT/HCPCS: 99283 ==

== ENCOUNTER 2024-07-30 09:56 | Emergency (ER) | payer SELFPAY ==
[2024-07-30] MEDS: Ibuprofen 800 MG Tab PO ONE (10:31)
[2024-07-30] MEDS: Bacitracin Oint 28.35 GM Tube TOP ONE (10:32)
[2024-07-30] MEDS: Diphtheria,Pertussis(Acell),Tetanus Vaccine 0.5 ML Syringe IM ONE (10:32)
== END 2024-07-30 10:47 | disposition home or self-care (01) ==
LOC: MW.ED 09:56
DX: T21.21XA Burn of second degree of chest wall, initial encounter (principal); I10 Essential (primary) hypertension; F17.210 Nicotine dependence, cigarettes, uncomplicated; Z91.018 Allergy to other foods; Z75.3 Unavailability and inaccessibility of health-care facilities; X08.8XXA Exposure to other specified smoke, fire and flames, initial encounter; Z23 Encounter for immunization
CPT/HCPCS: 90471; 90715; 99283; A9270

== ENCOUNTER 2024-09-16 00:13 | Emergency (ER) | payer MEDICAID | END 2024-09-16 02:48 | LOC: MW.ED 00:13 | DX: Z02.89 Encounter for other administrative examinations (principal); F10.920 Alcohol use, unspecified with intoxication, uncomplicated; I10 Essential (primary) hypertension; Z91.018 Allergy to other foods; Z91.048 Other nonmedicinal substance allergy status; Z79.899 Other long term (current) drug therapy; Y90.9 Presence of alcohol in blood, level not specified | CPT/HCPCS: 82947; 93005; 99284 ==

== ENCOUNTER 2024-09-21 11:34 | Emergency (ER) | payer MEDICAID ==
[2024-09-21 12:25] LABS: APPEARANCE,URINE CLEAR; BILIRUBIN,URINE NEGATIVE (NEGATIVE); COLOR,URINE YELLOW; GLUCOSE,URINE NEGATIVE (NEGATIVE); KETONES,URINE >=80 mg/dL (NEGATIVE); LEUKOCYTE ESTERASE,URINE NEGATIVE (NEGATIVE); NITRITE,URINE NEGATIVE (NEGATIVE); OCCULT BLOOD,URINE MODERATE (NEGATIVE); PH,URINE 5.5 (5.0-8.0); PROTEIN,URINE 30 mg/dL (NEGATIVE)
[2024-09-21 12:33] LABS: AMPHETAMINES SCREEN, URINE NEGATIVE (CUTOFF=500); BARBITURATE SCREEN,URINE NEGATIVE (CUTOFF=200); BENZODIAZEPINES SCREEN,URINE PRESUMPTIVE POSITIVE (CUTOFF=150); BUPRENORPHINE SCREEN,URINE NEGATIVE (CUTOFF=10); METHADONE SCREEN, URINE NEGATIVE (CUTOFF=200); METHAMPHETAMINES SCREEN, URINE NEGATIVE (CUTOFF=500); OXYCODONE SCREEN,URINE NEGATIVE (CUT0FF=100); PCP SCREEN,URINE NEGATIVE (CUTOFF=25); THC SCREEN,URINE 20 NG/ML NEGATIVE (CUTOFF=50)
[2024-09-21 12:35] LABS: BACTERIA,URINE NOT SEEN (NEGATIVE); EPITHELIAL CELLS,URINE RARE (NONE-FEW); RBC,URINE 0-2 (0-2/HPF); WBC,URINE NONE SEEN (0-5/HPF)
[2024-09-21] MEDS ORDERED: Sodium Chloride 0.9% 10 ML Syringe FLUSH PRN (12:52)
[2024-09-21] MEDS ORDERED: Sodium Chloride 0.9% 2.5 ML Syringe FLUSH PRN (12:52)
[2024-09-21] MEDS ORDERED: LORazepam 2 MG/ML SDV IVPUSH ONE (12:52)
[2024-09-21] MEDS ORDERED: Sodium Chloride 0.9% 20 ML SDV IV PRN (12:52)
[2024-09-21] MEDS: LORazepam 1 MG Tab PO ONE (13:07)
== END 2024-09-21 14:39 | disposition home or self-care (01) ==
LOC: MW.ED 11:34
DX: F10.10 Alcohol abuse, uncomplicated (principal); M25.561 Pain in right knee; H10.9 Unspecified conjunctivitis; I10 Essential (primary) hypertension; Z75.3 Unavailability and inaccessibility of health-care facilities; Z79.899 Other long term (current) drug therapy
CPT/HCPCS: 36415; 73562; 80305; 80307; 81001; 99285; A9270; 99283

== ENCOUNTER 2024-11-05 05:23 | Emergency (ER) | payer MEDICAID ==
[2024-11-05 07:56] LABS: BASOPHILS ABSOLUTE AUTO 0.03 K/uL (0.00-0.20); BASOPHILS PERCENT AUTO 0.5 % (0.0-1.0); EOSINOPHILS ABSOLUTE AUTO 0.15 K/uL (0.00-0.45); EOSINOPHILS PERCENT AUTO 2.4 % (0.0-6.0); IMMATURE GRAN ABSOLUTE AUTO 0.02 K/uL (0.00-0.05); IMMATURE GRAN PERCENT AUTO 0.3 % (0.0-0.4); LYMPHOCYTES ABSOLUTE AUTO 1.55 K/uL (1.00-4.80); LYMPHOCYTES PERCENT AUTO 24.6 % (24.0-44.0); MEAN PLATELET VOLUME 9.1 fL (9.4-12.4); MONOCYTES ABSOLUTE AUTO 0.93 K/uL (0.00-0.80); MONOCYTES PERCENT AUTO 14.8 % (0.0-8.0); NEUTROPHILS ABSOLUTE AUTO 3.62 K/uL (1.80-7.70); NEUTROPHILS PERCENT AUTO 57.4 % (41.0-71.0); NRBC ABSOLUTE 0.00 K/uL (0.00-0.02); NRBC PERCENT 0.0 /100WBC (0.0-0.2); PLATELET COUNT,PLT 138 K/uL (150-400); RED BLOOD CELL COUNT 4.25 M/uL (4.52-5.90); WHITE BLOOD CELL COUNT,WBC 6.30 K/uL (3.9-11.3)
[2024-11-05 08:29] LABS: A/G RATIO 1.0 (0.9-1.6); ALANINE AMINOTRANSFERASE,ALT 48.0 IU/L (14-63); ASPARTATE AMNIOTRANSFERASE,AST 44.0 IU/L (15-37); BILIRUBIN TOTAL 1.0 mg/dL (0.2-1.0); BLOOD UREA NITROGEN,BUN 11.0 mg/dL (7.0-18.0); CARBON DIOXIDE,CO2 29.4 mmol/L (21.0-32.0); CHLORIDE,CL 94.0 mmol/L (98-107); CREATINE KINASE,CK 348.0 U/L (26-308); CREATININE 1.0 mg/dL (0.8-1.3); EST CRCL DRUG DOSING (CG) 84.56 mL/min; GLUCOSE RANDOM 270.0 mg/dL (74-106); POTASSIUM,K 3.0 mmol/L (3.5-5.1); PROTEIN TOTAL,TP 7.5 g/dL (6.4-8.2); SODIUM,NA 135.0 mmol/L (136-148)
[2024-11-05 08:31] LABS: ESTIMATED GFR 97.0 mL/min (>60)
[2024-11-05] MEDS: Potassium Chloride 20 MEQ Tab.ER PO ONE (08:56)
== END 2024-11-05 09:42 ==
LOC: MW.ED 05:23
DX: Z02.89 Encounter for other administrative examinations (principal); E87.6 Hypokalemia; I10 Essential (primary) hypertension; Z88.8 Allergy status to other drugs, medicaments and biological substances
CPT/HCPCS: 36415; 80053; 82550; 85025; 93005; 99284; A9270

== ENCOUNTER 2024-11-11 08:55 | Emergency (ER) | payer MEDICAID | END 2024-11-11 09:26 | disposition home or self-care (01) | LOC: MW.ED 08:55 | DX: Z02.89 Encounter for other administrative examinations (principal); I10 Essential (primary) hypertension; Z88.8 Allergy status to other drugs, medicaments and biological substances | CPT/HCPCS: 99283; A9270; 99282 ==

== ENCOUNTER 2024-11-14 04:22 | Emergency (ER) | payer OTHER, MEDICAID ==
[2024-11-14 04:34] LABS: BASOPHILS ABSOLUTE AUTO 0.09 K/uL (0.00-0.20); BASOPHILS PERCENT AUTO 1.1 % (0.0-1.0); EOSINOPHILS ABSOLUTE AUTO 0.13 K/uL (0.00-0.45); EOSINOPHILS PERCENT AUTO 1.6 % (0.0-6.0); IMMATURE GRAN ABSOLUTE AUTO 0.01 K/uL (0.00-0.05); IMMATURE GRAN PERCENT AUTO 0.1 % (0.0-0.4); LYMPHOCYTES ABSOLUTE AUTO 2.88 K/uL (1.00-4.80); LYMPHOCYTES PERCENT AUTO 36.4 % (24.0-44.0); MEAN PLATELET VOLUME 9.6 fL (9.4-12.4); MONOCYTES ABSOLUTE AUTO 1.39 K/uL (0.00-0.80); MONOCYTES PERCENT AUTO 17.6 % (0.0-8.0); NEUTROPHILS ABSOLUTE AUTO 3.41 K/uL (1.80-7.70); NEUTROPHILS PERCENT AUTO 43.2 % (41.0-71.0); NRBC ABSOLUTE 0.00 K/uL (0.00-0.02); NRBC PERCENT 0.0 /100WBC (0.0-0.2); PLATELET COUNT,PLT 331 K/uL (150-400); RED BLOOD CELL COUNT 4.53 M/uL (4.52-5.90); WHITE BLOOD CELL COUNT,WBC 7.91 K/uL (3.9-11.3)
[2024-11-14 06:03] LABS: A/G RATIO 1.0 (0.9-1.6); ALANINE AMINOTRANSFERASE,ALT 29.0 IU/L (14-63); ASPARTATE AMNIOTRANSFERASE,AST 12.0 IU/L (15-37); BILIRUBIN TOTAL 0.3 mg/dL (0.2-1.0); BLOOD UREA NITROGEN,BUN 11.0 mg/dL (7.0-18.0); CARBON DIOXIDE,CO2 31.6 mmol/L (21.0-32.0); CHLORIDE,CL 99.0 mmol/L (98-107); CREATININE 1.0 mg/dL (0.8-1.3); EST CRCL DRUG DOSING (CG) 82.5 mL/min; GLUCOSE RANDOM 140.0 mg/dL (74-106); POTASSIUM,K 4.5 mmol/L (3.5-5.1); PROTEIN TOTAL,TP 7.7 g/dL (6.4-8.2); SODIUM,NA 138.0 mmol/L (136-148)
[2024-11-14 06:04] LABS: ESTIMATED GFR 97.0 mL/min (>60)
== END 2024-11-14 06:15 ==
LOC: MW.ED 04:22
DX: R56.9 Unspecified convulsions (principal); I10 Essential (primary) hypertension; Z88.8 Allergy status to other drugs, medicaments and biological substances
CPT/HCPCS: 36415; 80053; 82947; 83735; 85025; 99283; 99284

== ENCOUNTER 2024-11-15 05:38 | Emergency (ER) | payer MEDICAID ==
[2024-11-15 06:24] LABS: BASOPHILS ABSOLUTE AUTO 0.08 K/uL (0.00-0.20); BASOPHILS PERCENT AUTO 1.1 % (0.0-1.0); EOSINOPHILS ABSOLUTE AUTO 0.13 K/uL (0.00-0.45); EOSINOPHILS PERCENT AUTO 1.8 % (0.0-6.0); IMMATURE GRAN ABSOLUTE AUTO 0.01 K/uL (0.00-0.05); IMMATURE GRAN PERCENT AUTO 0.1 % (0.0-0.4); LYMPHOCYTES ABSOLUTE AUTO 2.50 K/uL (1.00-4.80); LYMPHOCYTES PERCENT AUTO 33.9 % (24.0-44.0); MEAN PLATELET VOLUME 9.1 fL (9.4-12.4); MONOCYTES ABSOLUTE AUTO 1.09 K/uL (0.00-0.80); MONOCYTES PERCENT AUTO 14.8 % (0.0-8.0); NEUTROPHILS ABSOLUTE AUTO 3.57 K/uL (1.80-7.70); NEUTROPHILS PERCENT AUTO 48.3 % (41.0-71.0); NRBC ABSOLUTE 0.00 K/uL (0.00-0.02); NRBC PERCENT 0.0 /100WBC (0.0-0.2); PLATELET COUNT,PLT 328 K/uL (150-400); RED BLOOD CELL COUNT 4.61 M/uL (4.52-5.90); WHITE BLOOD CELL COUNT,WBC 7.38 K/uL (3.9-11.3)
[2024-11-15 07:02] LABS: A/G RATIO 1.0 (0.9-1.6); ALANINE AMINOTRANSFERASE,ALT 25.0 IU/L (14-63); ASPARTATE AMNIOTRANSFERASE,AST 20.0 IU/L (15-37); BILIRUBIN TOTAL 0.4 mg/dL (0.2-1.0); BLOOD UREA NITROGEN,BUN 14.0 mg/dL (7.0-18.0); CARBON DIOXIDE,CO2 29.4 mmol/L (21.0-32.0); CHLORIDE,CL 98.0 mmol/L (98-107); CREATINE KINASE,CK 87.0 U/L (26-308); CREATININE 1.0 mg/dL (0.8-1.3); EST CRCL DRUG DOSING (CG) 84.2 mL/min; GLUCOSE RANDOM 129.0 mg/dL (74-106); POTASSIUM,K 4.2 mmol/L (3.5-5.1); PROTEIN TOTAL,TP 8.3 g/dL (6.4-8.2); SODIUM,NA 136.0 mmol/L (136-148)
[2024-11-15 07:04] LABS: ESTIMATED GFR 97.0 mL/min (>60)
== END 2024-11-15 07:33 ==
LOC: MW.ED 05:38
DX: G40.909 Epilepsy, unspecified, not intractable, without status epilepticus (principal); S06.9X0A Unspecified intracranial injury without loss of consciousness, initial encounter; I10 Essential (primary) hypertension; X58.XXXA Exposure to other specified factors, initial encounter
CPT/HCPCS: 36415; 80053; 82550; 85025; 96360; 99284; J7030; 99283

== ENCOUNTER 2024-11-18 19:43 | Emergency (ER) | payer MEDICAID ==
[2024-11-18] MEDS: levETIRAcetam 500 MG/5 ML SDV IVPUSH ONE (20:12)
[2024-11-18] MEDS: Ondansetron 4 MG/2 ML SDV IVPUSH ONE (20:12)
[2024-11-18] MEDS: Lactated Ringers 1,000 ML IV ONE (20:12)
[2024-11-18 20:34] LABS: BASOPHILS ABSOLUTE AUTO 0.07 K/uL (0.00-0.20); BASOPHILS PERCENT AUTO 0.9 % (0.0-1.0); EOSINOPHILS ABSOLUTE AUTO 0.27 K/uL (0.00-0.45); EOSINOPHILS PERCENT AUTO 3.6 % (0.0-6.0); IMMATURE GRAN ABSOLUTE AUTO 0.02 K/uL (0.00-0.05); IMMATURE GRAN PERCENT AUTO 0.3 % (0.0-0.4); LYMPHOCYTES ABSOLUTE AUTO 2.34 K/uL (1.00-4.80); LYMPHOCYTES PERCENT AUTO 31.4 % (24.0-44.0); MEAN PLATELET VOLUME 8.3 fL (9.4-12.4); MONOCYTES ABSOLUTE AUTO 0.82 K/uL (0.00-0.80); MONOCYTES PERCENT AUTO 11.0 % (0.0-8.0); NEUTROPHILS ABSOLUTE AUTO 3.94 K/uL (1.80-7.70); NEUTROPHILS PERCENT AUTO 52.8 % (41.0-71.0); NRBC ABSOLUTE 0.00 K/uL (0.00-0.02); NRBC PERCENT 0.0 /100WBC (0.0-0.2); PLATELET COUNT,PLT 359 K/uL (150-400); RED BLOOD CELL COUNT 4.34 M/uL (4.52-5.90); WHITE BLOOD CELL COUNT,WBC 7.46 K/uL (3.9-11.3)
[2024-11-18 20:50] LABS: BLOOD UREA NITROGEN,BUN 17 mg/dL (7.0-18.0); CARBON DIOXIDE,CO2 25.4 mmol/L (21.0-32.0); CHLORIDE,CL 105 mmol/L (98-107); CREATININE 1.2 mg/dL (0.8-1.3); GLUCOSE RANDOM 203 mg/dL (74-106); POTASSIUM,K 4.0 mmol/L (3.5-5.1); SODIUM,NA 141 mmol/L (136-148)
[2024-11-18 20:53] LABS: ESTIMATED GFR 78 mL/min (>60)
== END 2024-11-18 22:18 ==
LOC: MW.ED 19:43
DX: G40.409 Other generalized epilepsy and epileptic syndromes, not intractable, without status epilepticus (principal); I10 Essential (primary) hypertension; F17.210 Nicotine dependence, cigarettes, uncomplicated; Z91.018 Allergy to other foods; Z88.8 Allergy status to other drugs, medicaments and biological substances; Z79.899 Other long term (current) drug therapy
CPT/HCPCS: 36415; 80048; 85025; 96374; 96375; 99284; J1953; J2405; J7120; 99283

== ENCOUNTER 2024-12-25 01:07 | Emergency (ER) | payer MEDICAID ==
[2024-12-25] MEDS ORDERED: Sodium Chloride 0.9% 2.5 ML Syringe FLUSH PRN (01:08)
[2024-12-25] MEDS ORDERED: Sodium Chloride 0.9% 10 ML Syringe FLUSH PRN (01:08)
[2024-12-25 01:17] LABS: BASOPHILS ABSOLUTE AUTO 0.02 K/uL (0.00-0.20); BASOPHILS PERCENT AUTO 0.2 % (0.0-1.0); EOSINOPHILS ABSOLUTE AUTO 0.00 K/uL (0.00-0.45); EOSINOPHILS PERCENT AUTO 0.0 % (0.0-6.0); IMMATURE GRAN ABSOLUTE AUTO 0.02 K/uL (0.00-0.05); IMMATURE GRAN PERCENT AUTO 0.2 % (0.0-0.4); LYMPHOCYTES ABSOLUTE AUTO 0.71 K/uL (1.00-4.80); LYMPHOCYTES PERCENT AUTO 6.3 % (24.0-44.0); MEAN PLATELET VOLUME 8.4 fL (9.4-12.4); MONOCYTES ABSOLUTE AUTO 0.58 K/uL (0.00-0.80); MONOCYTES PERCENT AUTO 5.1 % (0.0-8.0); NEUTROPHILS ABSOLUTE AUTO 10.01 K/uL (1.80-7.70); NEUTROPHILS PERCENT AUTO 88.2 % (41.0-71.0); NRBC ABSOLUTE 0.00 K/uL (0.00-0.02); NRBC PERCENT 0.0 /100WBC (0.0-0.2); PLATELET COUNT,PLT 321 K/uL (150-400); RED BLOOD CELL COUNT 4.63 M/uL (4.52-5.90); WHITE BLOOD CELL COUNT,WBC 11.34 K/uL (3.9-11.3)
[2024-12-25] MEDS: Ondansetron 4 MG/2 ML SDV IVPUSH ONE (01:41)
[2024-12-25 01:48] LABS: ALANINE AMINOTRANSFERASE,ALT 17 IU/L (14-63); ASPARTATE AMNIOTRANSFERASE,AST 26 IU/L (15-37); BILIRUBIN TOTAL 0.6 mg/dL (0.2-1.0); BLOOD UREA NITROGEN,BUN 17 mg/dL (7.0-18.0); CARBON DIOXIDE,CO2 22.6 mmol/L (21.0-32.0); CHLORIDE,CL 98 mmol/L (98-107); CREATININE 1.5 mg/dL (0.8-1.3); EST CRCL DRUG DOSING (CG) 56.38 mL/min; ETHANOL BLOOD MEDICAL <3 mg/dL; GLUCOSE RANDOM 215 mg/dL (74-106); POTASSIUM,K 4.4 mmol/L (3.5-5.1); PRO B-TYPE NATRIUR PEPT,BNPPRO 126 pg/mL (0-125); PROTEIN TOTAL,TP 8.8 g/dL (6.4-8.2); SODIUM,NA 142 mmol/L (136-148)
[2024-12-25 01:50] LABS: A/G RATIO 1.1 (0.9-1.6); ESTIMATED GFR 60 mL/min (>60)
[2024-12-25 02:28] LABS: APPEARANCE,URINE CLEAR; GLUCOSE,URINE 100 mg/dL (NEGATIVE); OCCULT BLOOD,URINE NEGATIVE (NEGATIVE)
[2024-12-25] MEDS: droPERidol 2.5 MG/ML SDV IVPUSH ONE (02:29)
[2024-12-25 02:38] LABS: AMPHETAMINES SCREEN, URINE NEGATIVE (CUTOFF=500); BUPRENORPHINE SCREEN,URINE NEGATIVE (CUTOFF=10); METHADONE SCREEN, URINE NEGATIVE (CUTOFF=200); METHAMPHETAMINES SCREEN, URINE NEGATIVE (CUTOFF=500); OXYCODONE SCREEN,URINE NEGATIVE (CUT0FF=100); PCP SCREEN,URINE NEGATIVE (CUTOFF=25); THC SCREEN,URINE 20 NG/ML NEGATIVE (CUTOFF=50)
[2024-12-25 02:47] LABS: EPITHELIAL CELLS,URINE RARE (NONE-FEW)
[2024-12-25] MEDS: Iopamidol 755 MG/ML 500 ML Multipack Bottle IVPUSH ONE (02:55)
[2024-12-25] MEDS: Alum Hydrox/Mag Hydrox/Simeth 15 ML, Metoclopramide 5 MG, Lidocaine 2% 5 ML PO ONE (03:26)
== END 2024-12-25 05:00 | disposition home or self-care (01) ==
LOC: MW.ED 01:07
DX: R41.82 Altered mental status, unspecified (principal); N17.9 Acute kidney failure, unspecified; E86.0 Dehydration; E83.42 Hypomagnesemia; R11.2 Nausea with vomiting, unspecified; F10.90 Alcohol use, unspecified, uncomplicated; Z87.820 Personal history of traumatic brain injury
CPT/HCPCS: 36415; 70450; 74177; 80053; 80143; 80179; 80305; 80307; 81001; 83605; 83735; 83880; 84484; 85025; 85652; 86140; 93005; 96361; 96374; 96375; 99285; A9270; J1790; J2405; J3490; J7030; Q9967; 93010; 99284

== ENCOUNTER 2025-03-18 09:34 | Emergency (ER) | payer SELFPAY | END 2025-03-18 10:45 | LOC: MW.ED 09:34 | DX: Z02.89 Encounter for other administrative examinations (principal); Z76.0 Encounter for issue of repeat prescription; I10 Essential (primary) hypertension; F17.200 Nicotine dependence, unspecified, uncomplicated; Z91.018 Allergy to other foods; Z79.899 Other long term (current) drug therapy | CPT/HCPCS: 99283 ==